=== PATIENT | female | born 2000 | race Caucasian/White ===

== ENCOUNTER 2019-08-12 13:23 | Emergency (ER) | payer MEDICAID, SELFPAY ==
[2019-08-12 13:32] VITALS: BP 118/62; PULSE 107; RESP 18; TEMP 36.4; O2SAT 99; BMI 23.8
--- NOTE | 2019-08-12 13:59 | US_ITS ---
WS: [id number] EARLY OBSTETRICAL ULTRASOUND (<14 WEEKS). HISTORY: thinks about 9 wks preg; bleeding/cramping COMPARISON: None available. Single intrauterine gestational sac is identified. Cardiac activity at 164 BPM. [place]-rump length rené sures 3.4 cm which corresponds to a gestation of 10w2d. Normal-appearing yolk sac and amnion demonstr ated. Small subchorionic hemorrhage.Subchorionic hemorrhage along the posterior gestational sac measu res 2.1 x 0.8 x 2.2 cm. No free fluid. Normal size ovaries with no mass. US/US OB <= 14 weeks fetus [id number] IMPRESSION: 1. Single intrauterine gestation of 10 weeks 2 days with an EDC of 03/07/2020. 2. Small subchorionic hemorrhage.
--- NOTE | 2019-08-12 14:00 | ED_ITS ---
HPI - General: Chief complaint: OB/Uterine Contractions Stated complaint: preg/cramping and bleeding Time Seen by Provider: 08/12/19 13:27 Source: patient Mode of arrival: ambulatory Limitations: no limitations History of Present Illness: HPI Narrative: Patient is a 19-year-old female [id number] here at approximately 9 weeks for complaints of vaginal bleeding and cramping that began this morning. Patient states she has saturated 2 pads total but currently describes the bleeding as light spotting. Patient states she did have her confirmed at [place] recently. She denies vaginal discharge or odor. Denies concerns for STDs. She denies abdominal pain, nausea, vomiting. No urinary symptoms. Date of Last Menstrual Period: 06/02/19 Associated symptoms: Deny abdominal pain, dysuria, headache(s), malaise, nausea, vaginal bleeding, vaginal discharge or vomiting Review of Systems Const: Denies: fever, chills, body aches, fatigue or malaise Card: Denies: chest pain Resp: Denies: shortness of breath GI: Denies: abdominal pain, nausea, vomiting or diarrhea : Reports: vaginal bleeding and pelvic pain (cramping); Denies: flank pain, difficulty urinating, painful urination, urinary frequency, urinary urgency, urinary hesitancy, blood in urine, genital lesion, genital itching, vaginal odor or vaginal discharge Musc: Denies: neck pain or back pain Skin/Breast: Denies: rash Neuro: Denies: headache, numbness in extremities, weakness in extremities or changes in sensation PFS ED PFSH: Social History Smoking and tobacco status: current every day smoker Female Reproductive History: Date of last menstrual period: 06/02/19 Physical Exam Const: COMMON NORMALS: no apparent distress, average body habitus, oriented x3, no limitations, healthy appearing, alert and well nourished Resp: COMMON NORMALS: normal respiratory effort and clear to auscultation bilaterally AUSCULTATION: clear to auscultation bilaterally Cardio: COMMON NORMALS: regular rate and regular rhythm RATE: regular rate RHYTHM: regular rhythm GI: COMMON NORMALS: normal to inspection, nondistended, normoactive bowel sounds, soft to palpation, non-tender, no hepatosplenomegaly and no masses PALPATION: Yes soft and Yes no hepatosplenomegaly : COMMON NORMALS: Yes no CVA tenderness BLADDER/KIDNEY EXAM: Yes no CVA tenderness SPECULUM EXAM - VAGINA: No vaginal bleeding, No tissue present in vagina and Yes vaginal discharge Vaginal discharge present: yellow SPECULUM EXAM - CERVIX: Yes cervical os closed, No tissue present in the cervical os, No cervical bleeding, No cervical tenderness and Yes other (no cervicitis ) BIMANUAL EXAM - VAGINA & UTERUS: No cervical tenderness OB/EXTERNAL & SPECULUM: no tissue noted in vagina and vaginal bleeding Back/Pelvis: COMMON NORMALS: no CVA tenderness Neuro: COMMON NORMALS: oriented x3 SENSORIUM/ORIENTATION: Yes alert Skin: COMMON NORMALS: no rashes or lesions noted GENERAL SKIN EXAM: no rashes or lesions noted Course Vital Signs: Vital signs: Vital Signs Temperature 97.6 F 08/12/19 13:32 Pulse Rate 99 08/12/19 14:48 Respiratory Rate 18 08/12/19 14:48 Blood Pressure 103/65 08/12/19 14:48 Pulse Oximetry 98 08/12/19 14:48 MDM - OB/Uterine Contractions Lab Data: Labs: Lab Results 08/12/19 08/12/19 08/12/19 Range/Units 14:46 14:46 14:46 WBC 9.8 (4.5-13.0) 10^3/ uL RBC 4.01 L (4.1-5.3) 10^6/u L Hgb 12.0 (11.5-15.3) g/dL Hct 35.1 L (37.0-47.0) % MCV 87.5 (81-99) fL MCH 29.9 (28.0-34.0) pg MCHC 34.2 (30.0-36.0) g/dL RDW 12.7 (12.1-15.1) % Plt Count 186 (130-400) 10^3/c mm MPV 11.0 H (7.4-10.4) fL Neut % (Auto) 70.6 % Lymph % (Auto) 21.8 % [place] % (Auto) 6.7 % Eos % (Auto) 0.5 % Baso % (Auto) 0.2 % Neut # (Auto) 6.9 (1.8-8.0) 10^3/u L Lymph # (Auto) 2.2 (1.5-6.5) 10^3/u L [place] # (Auto) 0.7 (0.2-0.9) 10^3/u L Eos # (Auto) 0.1 (0.0-0.8) 10^3/u L Baso # (Auto) 0.0 (0.0-0.1) 10^3/u L Nucleated RBC % (a uto) 0 % Nucleated RBCs # 0.0 /100WBC Sodium 137 (136-145) mmol/L Potassium 3.8 (3.5-5.1) mmol/L Chloride 101 (98-107) mmol/L Carbon Dioxide 24 (22-29) mmol/L Anion Gap 15.8 (5-19) BUN 6 (6-20) mg/dL Creatinine 0.4 L (0.5-0.9) mg/dL GFR Calculation 203.5 H (90-130) mL/min Glucose 97 (65-115) mg/dL Calculated Osmolal ity 280 L (285-295) mOsm/k g Calcium 9.4 (8.5-10.5) mg/dL Total Bilirubin 0.2 (0.15-1.2) mg/dL AST 12 (0-32) U/L ALT 10 (0-33) U/L Alkaline Phosphata se 86 (35-105) IU/L Total Protein 6.6 (6.6-8.7) g/dL Albumin 4.0 (3.5-5.2) g/dL Globulin 2.6 (1.3-4.6) g/dL Ser , [place] David i-Qnt mIU/mL Blood Type O Positive Rho(D) Type Positive 08/12/19 Range/Units 14:46 WBC (4.5-13.0) 10^3/ uL RBC (4.1-5.3) 10^6/u L Hgb (11.5-15.3) g/dL Hct (37.0-47.0) % MCV (81-99) fL MCH (28.0-34.0) pg MCHC (30.0-36.0) g/dL RDW (12.1-15.1) % Plt Count (130-400) 10^3/c mm MPV (7.4-10.4) fL Neut % (Auto) % Lymph % (Auto) % [place] % (Auto) % Eos % (Auto) % Baso % (Auto) % Neut # (Auto) (1.8-8.0) 10^3/u L Lymph # (Auto) (1.5-6.5) 10^3/u L [place] # (Auto) (0.2-0.9) 10^3/u L Eos # (Auto) (0.0-0.8) 10^3/u L Baso # (Auto) (0.0-0.1) 10^3/u L Nucleated RBC % (a uto) % Nucleated RBCs # /100WBC Sodium (136-145) mmol/L Potassium (3.5-5.1) mmol/L Chloride (98-107) mmol/L Carbon Dioxide (22-29) mmol/L Anion Gap (5-19) BUN (6-20) mg/dL Creatinine (0.5-0.9) mg/dL GFR Calculation (90-130) mL/min Glucose (65-115) mg/dL Calculated Osmolal ity (285-295) mOsm/k g Calcium (8.5-10.5) mg/dL Total Bilirubin (0.15-1.2) mg/dL AST (0-32) U/L ALT (0-33) U/L Alkaline Phosphata se (35-105) IU/L Total Protein (6.6-8.7) g/dL Albumin (3.5-5.2) g/dL Globulin (1.3-4.6) g/dL Ser , [place]Qnt 72138.00 mIU/mL Blood Type Rho(D) Type Imaging Data^: US OB: Radiologist's impression: [address] [address] Ultrasound Report Signed Patient: Marcelino Ji Unit #: [id number] : 2000 Age/Sex: 19 / F ADM Date: 08/12/19 Loc: ER Room/Bed: Attending Dr: Ordering Provider/Ordering MD: Berna Hearn Date of Service: 08/12/19 Procedure(s): US OB <= 14 weeks fetus [id number] Accession Number(s): [id number] Report Number: [id number] WS: [id number] EARLY OBSTETRICAL ULTRASOUND (<14 WEEKS). HISTORY: thinks about 9 wks preg; bleeding/cramping COMPARISON: None available. Single intrauterine gestational sac is identified. Cardiac activity at 164 BPM. [place]-rump length measures 3.4 cm which corresponds to a gestation of 10w2d. Normal-appearing yolk sac and amnion demonstrated. Small subchorionic hemorrhage.Subchorionic hemorrhage along the posterior gestational sac measures 2.1 x 0.8 x 2.2 cm. No free fluid. Normal size ovaries with no mass. US/US OB <= 14 weeks fetus [id number] IMPRESSION: 1. Single intrauterine gestation of 10 weeks 2 days with an EDC of 03/07/2020. 2. Small subchorionic hemorrhage. Dictated By: Taylor River DO Signed By: Taylor River DO Signed Date/Time: 08/12/191451 DD/ 49 Discharge Plan Discharge Patient Disposition: Home, Self-Care Clinical Impression: , threatened Condition: Stable Prescriptions: No Action No Known Home Medications RF: 0 Discharge Orders: Discharge Order (Routine); Ordered 08/12/19 Ordered By: Berna Hearn Referrals: Michael Marino DO [Family Provider] - Mandeep Baltazar MD [Primary Care Provider] - Patient Instructions: Threatened , Threatened Miscarriage (ED) Activity Restrictions/Additional Instructions: Avoid sexual intercourse until seen/cleared by your OB. Contact Dr. Baltazar today/tomorrow to schedule follow up visit. Return to ED for worsening cramping/bleeding. Coding Level of Care Code ED Overnight Babysitter for Chg Fwd Exam Detailed
[2019-08-12 14:48] VITALS: BP 103/65; PULSE 99; RESP 18; O2SAT 98
[2019-08-12 15:06] LABS: Basophils % 0.2 %; Eosinophils # 0.1 10^3/uL (0.0-0.8); Eosinophils % 0.5 %; Hematocrit 35.1 % (37.0-47.0); Lymphocytes # 2.2 10^3/uL (1.5-6.5); Lymphocytes % 21.8 %; Mean Corpuscular HGB Conc 34.2 g/dL (30.0-36.0); Mean Corpuscular Hemoglobin 29.9 pg (28.0-34.0); Mean Corpuscular Volume 87.5 fL (81-99); Monocytes # 0.7 10^3/uL (0.2-0.9); Monocytes % 6.7 %; Neutrophils # 6.9 10^3/uL (1.8-8.0); Neutrophils % 70.6 %; Nucleated Red Blood Cells % 0 %; Platelet Count 186 10^3/cmm (130-400); Red Blood Count 4.01 10^6/uL (4.1-5.3); Red Cell Distribution Width 12.7 % (12.1-15.1); White Blood Count 9.8 10^3/uL (4.5-13.0)
[2019-08-12 15:16] LABS: Alanine Aminotransferase 10 U/L (0-33); Alkaline Phosphatase 86 IU/L (35-105); Anion Gap 15.8 (5-19); Aspartate Amino Transferase 12 U/L (0-32); Blood Urea Nitrogen 6 mg/dL (6-20); Calcium 9.4 mg/dL (8.5-10.5); Carbon Dioxide 24 mmol/L (22-29); Chloride 101 mmol/L (98-107); Globulin 2.6 g/dL (1.3-4.6); Glomerular Filtration Rate 203.5 mL/min (90-130); Glucose 97 mg/dL (65-115); Osmolality Calculated 280 mOsm/kg (285-295); Potassium 3.8 mmol/L (3.5-5.1); Sodium 137 mmol/L (136-145); Total Bilirubin 0.2 mg/dL (0.15-1.2); Total Protein 6.6 g/dL (6.6-8.7)
[2019-08-12 17:05] VITALS: BP 102/61; PULSE 79; RESP 16; O2SAT 98
--- NOTE | 2019-08-15 07:48 | PC.NURSE ---
unable to contact pt by phone, letter sent to pt to notify culture returned with trich and need flagyl 500mg bid for 7days
== END 2019-08-12 17:13 | disposition home or self-care (01) ==
PROVIDERS: Emergency Provider Physician Assistant; Family Provider Family Medicine; PCP Family Medicine
DX: O20.0 Threatened abortion (principal); Z3A.10 10 weeks gestation of pregnancy; O99.331 Smoking (tobacco) complicating pregnancy, first trimester
CPT/HCPCS: 12345; 36415; 76801; 80053; 84702; 85025; 86900; 87210; 87491; 87591; 99283; E0352

== ENCOUNTER 2019-09-27 14:54 | Emergency (ER) | payer MEDICAID, SELFPAY ==
[2019-09-27 15:03] VITALS: BP 112/70; PULSE 91; RESP 18; TEMP 36.8; O2SAT 99; BMI 21.5
--- NOTE | 2019-09-27 15:17 | ED_ITS ---
HPI - Skin/Abscess/Foreign Bdy General: Chief complaint: Skin/Abscess/Foreign Body Stated complaint: LUMP UNDER ARM Time Seen by Provider: 09/27/19 14:59 History of Present Illness: HPI narrative: Patient came to the ER for a lump in her right axilla that she states has been there for approximately 9 months. Patient is also approximately 4 months and has had no care. complaint: lesion Review of Systems General: Reports: 10 or more systems reviewed and unremarkable except in HPI and below PFSH ED PFSH: Social History Smoking and tobacco status: current every day smoker Female Reproductive History: Date of last menstrual period: 06/02/19 Physical Exam Narrative: EXAM NARRATIVE: Palpation of the right axilla reveals a deep slightly enlarged but exquisitely painful lymph node. Course ED course: After evaluation of patient's primary complaint, I tried to speak with her concerning her current and lack of care. Patient became angry and refused to speak any further. Vital Signs: Vital signs: Vital Signs Temperature 98.3 F 09/27/19 15:03 Pulse Rate 91 09/27/19 15:03 Respiratory Rate 18 09/27/19 15:03 Blood Pressure 112/70 09/27/19 15:03 Pulse Oximetry 99 09/27/19 15:03 Discharge Plan Discharge Patient Disposition: Home, Self-Care Clinical Impression: Lymphadenitis Condition: Stable Prescriptions: No Action No Known Home Medications RF: 0 Discharge Orders: Discharge Order (Routine); Ordered 09/27/19 Ordered By: Anthony Calderón Referrals: Michael Marino DO [Family Provider] - Mandeep Baltazar MD [Primary Care Provider] - Coding Level of Care Code ED Home Restoration Service Supervisor for Maria C Farley
[2019-09-27 15:41] VITALS: BP 112/70; PULSE 89; RESP 14; O2SAT 99
== END 2019-09-27 15:42 | disposition home or self-care (01) ==
PROVIDERS: Emergency Provider Family Medicine; Family Provider Family Medicine; PCP Family Medicine
DX: I88.9 Nonspecific lymphadenitis, unspecified (principal); F17.210 Nicotine dependence, cigarettes, uncomplicated
CPT/HCPCS: 12345; 99281

== ENCOUNTER 2020-03-08 10:05 | Inpatient (IN) | payer MEDICAID, SELFPAY ==
[2020-03-08] VITALS (74 sets, daily range): BP systolic 0–127; BP diastolic 0–84; PULSE 81–114; RESP 15–18; TEMP 36.7–36.9; O2SAT 96–100; BMI 24.2
[2020-03-08] MEDS: lactated ringers 1,000 ML 999 ML IV ×2 (10:44→11:50)
[2020-03-08 10:54] LABS: Basophils % 0.2 %; Eosinophils # 0.1 10^3/uL (0.0-0.8); Eosinophils % 0.8 %; Hemoglobin 9.8 g/dL (11.5-15.3); Lymphocytes # 3.4 10^3/uL (1.5-6.5); Lymphocytes % 20.4 %; Mean Corpuscular HGB Conc 32.7 g/dL (30.0-36.0); Mean Corpuscular Hemoglobin 29.3 pg (28.0-34.0); Mean Corpuscular Volume 89.6 fL (81-99); Monocytes # 1.4 10^3/uL (0.2-0.9); Monocytes % 8.5 %; Neutrophils # 11.62 10^3/uL (1.8-8.0); Neutrophils % 69.4 %; Nucleated Red Blood Cells % 0 %; Platelet Count 242 10^3/cmm (130-400); Red Blood Count 3.35 10^6/uL (4.1-5.3); Red Cell Distribution Width 12.9 % (12.1-15.1); White Blood Count 16.8 10^3/uL (4.5-13.0)
[2020-03-08 11:21] LABS: Amphetamines Screen Urine Negative (Negative); Barbiturates Screen Urine Negative (Negative); Benzodiazepines Screen Urine Negative (Negative); Cocaine Screen Urine Negative (Negative); Opiate Screen Urine Negative (Negative); PCP Screen Urine Negative (Negative); THC Screen Urine Negative (Negative)
--- NOTE | 2020-03-08 11:45 | ANES.PREANE2 ---
Pre-Anesthetic Assessment Pre-Anesthetic Assessment: Height/Weight: Height 1.57 m Weight 60.006 kg Pulse BP 104 H 123/82 03/08/20 11:19 03/08/20 11:19 Preop Diagnosis: labor pain Proposed Procedure: epidural Was Beta Nelly taken within 24 hours: N/A Social: Social History: Tobacco Packs per day: 0.5 Exam: Pre-Anes Outpt Exam: alert, oriented x 3, clear to auscultation bilaterally and regular rate & rhythm Airway: Submandibular: WNL Cervical ROM: WNL MP: 2 Dentition: Full Pulmonary: Pulmonary: None reported CV/HEM: CV/HEM: None reported : : None reported Hepatic: Hepatic: None reported GI: GI: None reported Metabolic: Metabolic: None reported Musc/skel: Musc/skel: None reported Neuropsych: Neuropsych: Anxiety and Depression Anesthetic Plan: ASA status: 2 Anesthesia: Regional (specify below) Meds/Allergies Current Medications: Current Medications Generic Name Dose Route Start Last Admin Trade Name Freq PRN Reason Stop Dose Admin Ropivacaine 200 mg in 100 mls @ 13 mls/hr 03/08/20 10:45 03/08/20 11:44 Naropin Premix EPIDURAL 13 mls/hr .[id number] PHILLIP Administration Lactated Ringer's 1,000 mls @ 999 m ls/hr 03/08/20 10:39 03/08/20 10:44 Lactated Ringers IV 999 mls/hr .Q1H1M PRN Administration See label comment s PFSH Anesthesia PFSH: Social History Smoking and tobacco status: current every day smoker Female Reproductive History: Date of last menstrual period: 06/02/19 : 4 Data Anesthesia CBC & Chem 7: 03/08/20 10:25 Other Labs: Laboratory Results - last 48 hr 03/08/20 03/08/20 10:20 10:25 WBC 16.8 H RBC 3.35 L Hgb 9.8 L Hct 30.0 L MCV 89.6 MCH 29.3 MCHC 32.7 RDW 12.9 Plt Count 242 MPV 12.0 H Neut % (Auto) 69.4 Lymph % (Auto) 20.4 [place] % (Auto) 8.5 Eos % (Auto) 0.8 Baso % (Auto) 0.2 Neut # (Auto) 11.62 H Lymph # (Auto) 3.4 [place] # (Auto) 1.4 H Eos # (Auto) 0.1 Baso # (Auto) 0.0 Nucleated RBC % (auto) 0 Nucleated RBCs # 0.0 Urine Opiates Screen Negative Ur Barbiturates Screen Negative Ur Phencyclidine Scrn Negative Ur Amphetamines Screen Negative U Benzodiazepines Scrn Negative Urine Cocaine Screen Negative U Marijuana (THC) Screen Negative Cardiac Studies: No Data to Display
--- NOTE | 2020-03-08 12:09 | ANES.PROC ---
Anesthesia Procedures Procedure/Date: 03/08/20 epidural Procedure Narrative: epidural complete, bolus given, epidural pump initiated with EXTRACTIONS TECHNICIAN education given, vitals taken during procedure using OBIX system and satisfactory throughout, patient admits to decrease pain, report of procedure to OB RN Epidural: Time Out Performed: Yes Consents Signed: Procedure Consent Consent: requested by attending/covering physician, from patient, risks and benefits reviewed and patient agrees to proceed Lumbar Level: L3-L4 Epidural position: sitting Epidural procedure: sterile prep of area, 1% lidocaine to numb the area (3 mL), 18 g needle, negative for paresthesia passed, neg for paresthesia, test dose given, 1.5% xylocaine 1:200k epi (5 mL), 0.2% Ropivacaine bolus ml (5 mL), placed PCEA, no systemic response, sterile dressing applied, L.U.D. no apparent complications and 0.2% Ropiavacaine @ mls/hr (13 mL/hr)
[2020-03-08] MEDS: dextrose 5%-lactated ringers 1,000 ML 125 ML IV (12:46)
--- NOTE | 2020-03-08 18:02 | PM.DELIVERY ---
Delivery Note: Date of delivery: March 08, 2020 this 19-year-old 4 now para 2 female with an EDC of 08/06/2019 had spontaneous onset of labor early this morning. She arrived [facility] labor and delivery time late morning and was found to be approximately 5 cm dilated. She labored through the day and dilated to complete cervical dilatation. Artificial rupture membranes was accomplished at approximately 9 cm dilatation with findings of moderate thick meconium stained fluid. However heart tones were very reassuring. Patient delivered by spontaneous vaginal delivery at 1732. Upon delivery the mouth and nose were suctioned well with a bulb syringe and the shoulders were delivered initially the left shoulder anteriorly followed by the posterior right shoulder. The was then suctioned again after delivery prior to laying the infant on mother's abdomen. had good tone at delivery and cried well at . Infant was suctioned more and brought to the warmer where approximately 4 cm of thin meconium stained liquid was deleed. The placenta delivered spontaneously at 1736. There was no episiotomy but a small first-degree right vaginal laceration which was repaired using Vicryl suture. There is also a approximately 2 cm long left vaginal wall laceration from the periurethral area inferiorly. This was also repaired with Vicryl sutures without problems. A sweep of the vaginal vault demonstrated just a few clots and no active bleeding. It was not mentioned above that the infant's father cut the umbilical cord and the umbilical cord had 3 blood vessels. Infant Apgars were 8 and 9 at 1 and 5 minutes respectively and the weighed 7 pounds 11 ounces. Estimated blood loss approximately 115 mL. There were no complications. Pre-Delivery Course: The patient was followed through her initially by this physician at around 17 weeks. She then left my practice and went elsewhere and return to my practice at 37 weeks gestation and was followed for the remainder of her . Maternal blood type was O+ with antibody screen negative. Hepatitis B, hepatitis C, RPR and HIV were negative. Rubella was immune and group B strep was negative. She was also Covid negative. Except for lack of or decreased care there is no other complications through her course. Delivery: Spontaneous vaginal delivery. Post-Delivery Status: Patient is doing well and will be followed for routine postdelivery care. A&P Assessment and plan (1) Normal spontaneous vaginal delivery: Patient is doing well at this time and will be followed for routine postdelivery care. Status: Acute Coding Level of Care Code Acute Time Clock Mechanic for Chg Fwd Diagnoses Normal spontaneous vaginal delivery O80
[2020-03-08] MEDS: oxytocin 30 UNIT/500 ML BAG 600 UNIT IV (19:18)
--- NOTE | 2020-03-08 20:18 | PC.NURSE ---
PT AMBULATED TO ROOM AT 1930. EAR FLAP BINDER WALKED ALONGSIDE PT. PT TOLERATED AMBULATION WELL.
[2020-03-08] MEDS: ibuprofen 800 mg tablet PO (20:30)
[2020-03-08] MEDS: benzocaine-menthol 78 gm Canister 1 SPRAY TOPICAL (22:34)
[2020-03-08] MEDS: lanolin oint 7 gm 1 APPLIC TOPICAL (22:34)
[2020-03-09] VITALS (7 sets, daily range): BP systolic 95–116; BP diastolic 57–76; PULSE 73–115; RESP 16–18; TEMP 36.6–37; O2SAT 97–99
[2020-03-09] MEDS: HYDROcodone-acetaminophen 5-325 mg Tablet PO ×2 (03:34→13:57)
--- NOTE | 2020-03-09 04:10 | PC.NURSE ---
PT RATING LOWER ABD PAIN AT 8/10. CAPACITOR REPAIRER OFFERED PT PRN PAIN MEDICATION, PT REQUESTED ONE HYDROCODONE. AT PAIN REASSESSMENT, PT STATED PAIN LEVEL WAS THE SAME BUT REFUSED ANY OTHER INTERVENTIONS FOR PAIN MANAGMENT, STATED SHE WANTED TO RIDE IT OUT . AT THIS TIME, CAPACITOR REPAIRER OFFERED ICE PACK AND SITZ BATH FOR NOTED SWOLLEN PERINEUM, PT REFUSED.
[2020-03-09 06:27] LABS: Hemoglobin 8.7 g/dL (11.5-15.3); Mean Corpuscular HGB Conc 32.2 g/dL (30.0-36.0); Mean Corpuscular Hemoglobin 29.5 pg (28.0-34.0); Mean Corpuscular Volume 91.5 fL (81-99); Mean Platelet Volume 12.1 fL (7.4-10.4); Platelet Count 236 10^3/cmm (130-400); Red Blood Count 2.95 10^6/uL (4.1-5.3); Red Cell Distribution Width 12.8 % (12.1-15.1); White Blood Count 21.1 10^3/uL (4.5-13.0)
--- NOTE | 2020-03-09 07:27 | PM.OBGYDC ---
Discharge Providers ASSOCIATE PROGRAMMER ANALYST Date of Admission: 03/08/20 10:26 Date of Discharge: 03/09/20 Attending Provider at Admission: Mandeep Baltazar MD Attending Provider at Discharge: Mandeep Baltazar MD Primary Care Provider: Mandeep Baltazar MD Diagnoses at Discharge Discharge Diagnosis (1) Normal spontaneous vaginal delivery: Status: Acute Hospital Course Hospital Course Patient has done well since delivery. She is ambulating well and tolerating regular diet. She has mild lochia with no problems. She is felt to be stable for discharge this evening. Information Peripartum Data: Delivery Method: Vaginal Physical Exam Const: COMMON NORMALS: no acute distress GENERAL APPEARANCE: cooperative Resp: COMMON NORMALS: normal respiratory effort and No use of accessory muscles GI: COMMON NORMALS: Normal to inspection, nondistended, normoactive bowel sounds present and Soft to palpation (Fundus is firm and well below the umbilicus.) PALPATION: Yes Soft to palpation (Fundus is firm and well below the umbilicus.) Extremity: COMMON NORMALS: no pedal edema Urinary Catheter Management^: Vora: Cath Placed During This Visit: yes, but has since been removed by the nurse Reason for Continuing Indwelling Catheter: Decision to DC Catheter Urinary Catheter Date of Insertion: 03/08/20 Urinary Catheter Time of Insertion: 12:05 Date Urinary Catheter Removed: 03/08/20 Time Urinary Catheter Discontinued: 17:12 Discharge Data Data Completed and Pending: Labs from last 24 hours 03/09/20 03/08/20 03/08/20 06:00 10:25 10:20 WBC 21.1 H 16.8 H RBC 2.95 L 3.35 L Hgb 8.7 L 9.8 L Hct 27.0 L 30.0 L MCV 91.5 89.6 MCH 29.5 29.3 MCHC 32.2 32.7 RDW 12.8 12.9 Plt Count 236 242 MPV 12.1 H 12.0 H Neut % (Auto) 69.4 Lymph % (Auto) 20.4 [place] % (Auto) 8.5 Eos % (Auto) 0.8 Baso % (Auto) 0.2 Neut # (Auto) 11.62 H Lymph # (Auto) 3.4 [place] # (Auto) 1.4 H Eos # (Auto) 0.1 Baso # (Auto) 0.0 Nucleated RBC % (a uto) 0 Nucleated RBCs # 0.0 Urine Opiates Scre en Negative Ur Barbiturates Sc reen Negative Ur Phencyclidine S crn Negative Ur Amphetamines Sc reen Negative U Benzodiazepines Scrn Negative Urine Cocaine Scre en Negative U Marijuana (THC) Screen Negative Vitals: Last Vital Signs Temp 98.3 F 03/09/20 03:25 Pulse 94 03/09/20 03:25 Resp 18 03/09/20 03:25 BP 106/63 03/09/20 03:25 Pulse Ox 97 03/09/20 03:25 Discharge Plan Discharge Patient Disposition: Home Condition: Stable Prescriptions: No Action No Known Home Medications RF: 0 Discharge Orders: Discharge Order (Routine); Ordered 03/09/20 Ordered By: Mandeep Baltazar Referrals: Mandeep Baltazar MD [Primary Care Provider] - 6 Weeks Discharge Diet: Usual diet Discharge Activity: Resume usual activity Activity Restrictions/Additional Instructions: May be discharged this evening after infant's metabolic screen. Discharge Attestations ASSOCIATE PROGRAMMER ANALYST Time Spent in Discharge Care*: less than 30 min Specific Discharge Activities: Specific discharge activities: educating patient, documenting/other paperwork and evaluating patient/reviewing data Coding Level of Care Code Acute Sfdc Solution Architect for Chg Fwd Diagnoses Normal spontaneous vaginal delivery O80
--- NOTE | 2020-03-09 07:34 | PC.NURSE ---
Mom reports baby is nursing well. She nursed her first baby for two weeks stating her breasts got hard and she quit. Baby is sleeping at present last fed about 5 AM. Mom will eat breakfast and rouse baby to eat.
[2020-03-09] MEDS: prenatal vitamin Capsule 1 CAP PO (09:11)
[2020-03-09] MEDS: docusate sodium 100 mg Capsule PO ×2 (09:11→18:07)
[2020-03-09] MEDS: ibuprofen 800 mg tablet PO ×2 (09:11→14:28)
[2020-03-09] MEDS: benzocaine 20% 7 gm 1 APPLIC MUCOUS MEM (15:35)
--- NOTE | 2020-03-09 16:52 | PC.RESP ---
Smoking Cessation information sent to patient.
== END 2020-03-09 19:45 | disposition home or self-care (01) | DRG 807 ==
PROVIDERS: Admitting Provider Family Medicine; Family Provider Family Medicine; PCP Family Medicine; Visit Provider Family Medicine
DX: O77.0 Labor and delivery complicated by meconium in amniotic fluid (principal); Z37.0 Single live birth; Z3A.40 40 weeks gestation of pregnancy; O99.334 Smoking (tobacco) complicating childbirth; F17.210 Nicotine dependence, cigarettes, uncomplicated; O99.344 Other mental disorders complicating childbirth; F41.8 Other specified anxiety disorders; O70.0 First degree perineal laceration during delivery; Z20.828 Contact with and (suspected) exposure to other viral communicable diseases
CPT/HCPCS: 12345; 36415; 51702; 59025; 59409; 80306; 85025; 85027; 90471; 90686; 98960; 99211; G0378; G0379; J2795

== ENCOUNTER 2021-10-08 13:18 | Emergency (ER) | payer MEDICAID, SELFPAY ==
--- NOTE | 2021-10-08 13:33 | XRR_ITS ---
PROCEDURE INFORMATION: Exam: XR Left Shoulder Exam date and time: 10/08/2021 3:05 PM Age: 21 years old Clinical indication: Injury or trauma; Fall; Blunt trauma (contusions or hematomas); Shoulder; Left; Additional info: Shoulder injury TECHNIQUE: Imaging protocol: XR Left shoulder. Views: 2 or more views. COMPARISON: CR Chest 1 view [id number] 07/25/2016 1:12 AM FINDINGS: Bones/joints: Osseous structures are intact. Negative for fracture. Joint spaces are preserved. Soft tissues: Normal. XR/XR shoulder LT min 2V* [id number] IMPRESSION: No acute findings.
[2021-10-08 14:13] VITALS: BP 116/82; PULSE 78; RESP 16; TEMP 36.9; O2SAT 98; BMI 21.0
--- NOTE | 2021-10-08 14:33 | W.ED.EXTPRO ---
HPI - Extremity Problem General: Chief complaint: Extremity Problem,Nontraumatic Stated complaint: left shoulder injury Time Seen by Provider: 10/08/21 14:25 Source: patient Mode of arrival: ambulatory Limitations: no limitations History of Present Illness: 21-year-old female presents to the ER today for left shoulder pain x2 weeks. Patient denies any known injury. She reports she just noticed that her shoulder started hurting. She reports she has pain at rest but the worst pain is when she lifts her arm. Patient denies any swelling. Patient reports she has 2 children who she has trouble lifting due to the pain. Patient has not take anything for the pain at this time. Review of Systems General: Reports: 10 or more systems reviewed and unremarkable except in HPI and below PFSH ED PFSH: Social History Smoking and tobacco status: current every day smoker Female Reproductive History: Date of last menstrual period: 06/02/19 Physical Exam Const: COMMON NORMALS: no acute distress, average body habitus, patient oriented x3, no limitations, healthy appearing and alert Neck/C-Spine: COMMON NORMALS: no lymphadenopathy Resp: COMMON NORMALS: normal respiratory effort EFFORT & INSPECTION: Yes able to speak in complete sentences Cardio: COMMON NORMALS: regular rate and regular rhythm RATE: regular rate RHYTHM: regular rhythm Extremity: NARRATIVE EXTREMITY EXAM: Left shoulder is nontender. No swelling or deformities noted. Patient has pain with active abduction greater than 45 degrees. Passive abduction is nontender. Empty can test is positive with some weakness noted. Neuro: COMMON NORMALS: patient oriented x3 SENSORIUM/ORIENTATION: Yes alert Psych: COMMON NORMALS: mental status grossly normal, Normal thought process present and cooperative THOUGHT PROCESS: Normal thought process present Skin: COMMON NORMALS: no rashes or lesions noted GENERAL SKIN EXAM: no rashes or lesions noted Course ED course: 21-year-old female presents to the ER today for left shoulder pain x2 weeks. Patient has no known injury. She reports pain with lifting the shoulder. She has not taking thing for the pain at this time. We will get an x-ray. On exam patient appears to likely have a rotator cuff injury, likely a strain or tendinitis. Vital Signs: Vital signs: Vital Signs Temperature 98.5 F 10/08/21 14:13 Pulse Rate 78 10/08/21 14:13 Respiratory Rate 16 10/08/21 14:13 Blood Pressure 116/82 10/08/21 14:13 Pulse Oximetry 98 10/08/21 14:13 MDM - Extremity (Nontraumatic) Medical Decision Making 21-year-old female presents to the ER today for left shoulder pain x2 weeks. Patient has no known injury. She reports pain with lifting the shoulder. She has not taking thing for the pain at this time. We will get an x-ray. On exam patient appears to likely have a rotator cuff injury, likely a strain or tendinitis. X-ray is unremarkable. Discussed findings with patient. We will start patient on Medrol Dosepak and anti-inflammatory as likely this is a tendinitis versus a strain. Discussed rest. Discussed pendulum exercises to avoid frozen shoulder. If no improvement in 10 to 14 days patient to follow-up with her PCP. Return to the ER with new or worsening symptoms. Patient verbalized understanding and is in agreement with the treatment plan. Critical Care Time Critical Care Time: Critical Care Time: No Discharge Plan Discharge Patient Disposition: Home Clinical Impression: Acute pain of left shoulder Condition: Stable Prescriptions: New Medrol ([place]) 4 mg tablets,dose pack See Rx Instructions .ROUTE .COMPLEX Qty: 21 0RF Rx Instructions: orally per package directions meloxicam 7.5 mg tablet 7.5 mg PO DAILY Qty: 14 0RF Discharge Orders: Discharge ED (Routine); Ordered 10/08/21 Ordered By: Kiki Nava Referrals: Mandeep Baltazar MD [Primary Care Provider] - Discharge Diet: Usual diet Discharge Activity: Limit activity as instructed Patient Instructions: Opioid Safety Activity Restrictions/Additional Instructions: Take Medrol Dosepak and meloxicam as prescribed. Recommend pendulum exercises to keep shoulder from becoming frozen. Rest recommended, avoid lifting. Follow-up with PCP in 14 to 21 days if no improvement. Return to the ER with new or worsening symptoms. 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
== END 2021-10-08 15:48 | disposition home or self-care (01) ==
PROVIDERS: Emergency Provider Physician Assistant; PCP Family Medicine
DX: M25.512 Pain in left shoulder (principal)
CPT/HCPCS: 73030; 99283

== ENCOUNTER 2023-05-31 06:19 | Inpatient (IN) | payer MEDICAID, SELFPAY ==
[2023-05-31] VITALS (57 sets, daily range): BP systolic 88–157; BP diastolic 53–88; PULSE 52–145; RESP 16–18; TEMP 36.6–37.3; O2SAT 77–100; BMI 24.7
[2023-05-31] MEDS: lactated ringers 1,000 ML 999 ML IV (06:41)
[2023-05-31 06:52] LABS: Basophils # 0.1 10^3/uL (0.0-0.1); Basophils % 0.4 %; Eosinophils # 0.4 10^3/uL (0.0-0.8); Eosinophils % 1.5 %; Hematocrit 30.2 % (36-47); Lymphocytes % 16.8 %; Mean Corpuscular HGB Conc 33.8 g/dL (30-55); Mean Corpuscular Hemoglobin 31.5 pg (27-33); Mean Corpuscular Volume 93.2 fl (85-98); Mean Platelet Volume 11.8 fL (7.4-10.4); Monocytes % 8.5 %; Neutrophils # 16.76 10^3/uL (1.8-7.7); Neutrophils % 70.6 %; Nucleated Red Blood Cells % 0 %; Platelet Count 202 10^3/cmm (157-399); Red Blood Count 3.24 10^6/uL (3.85-5.65); Red Cell Distribution Width 13.7 % (12.1-15.1); White Blood Count 23.72 10^3/uL (3.29-11.43)
[2023-05-31] MEDS: fentaNYL 50 mcg/mL INJ 2mL IVP (07:06)
[2023-05-31] MEDS: ROPivacaine syringe 100 MG/50 ML SYRINGE 10 MG EPIDURAL ×2 (07:52→12:05)
--- NOTE | 2023-05-31 08:01 | P.ANESASSM_ITS ---
Pre-Anesthetic Assessment Height/Weight: Height 1.57 m Weight 61.235 kg Temp Pulse Resp BP Pulse Ox O2 Del Method 98.8 F 106 H 18 110/65 98 Room Air 05/31/23 06:46 05/31/23 07:58 05/31/23 07:06 05/31/23 07:53 05/31/23 07:58 05/31/23 06:57 Epidural Familial anesthetic complications: None Was Beta Nelly taken within 24 hours: N/A Was Clonidine taken within 24 hours: N/A Last intake: > 8 hrs Social Tobacco and No alcohol Exam alert, oriented x 3, clear to auscultation bilaterally and regular rate & rhythm Airway Mallampati: Class I Dentition: full Anesthetic Plan ASA status: 2 Anesthesia: Regional (specify below) Risk of > 500 ml blood loss (7ml/kg in children): Yes, adequate IV access and fluids planned Other Pertinent Information discussed with patient that her high white count increases her risk of infection; states she would like to proceed Medications/Allergies Home Medications Medication Instructions Recorded Confirmed Last Taken Type meloxicam 7.5 mg tablet 7.5 mg PO DAILY #14 tabs 10/08/21 Unknown Rx methylprednisolone 4 mg tablets in See Rx Instructions PO .COMPLEX 10/08/21 Unknown Rx a dose pack (Medrol ([place]ren)) #21 ea Allergies Allergy/AdvReac Type Severity Reaction Status Date / Time No Known Allergies Allergy Verified 09/27/19 15:03 Current Medications Generic Name Dose Route Start Last Admin Trade Name Freq PRN Reason Stop Dose Admin Fentanyl 25 - 100 mcg 05/31/23 06:22 05/31/23 07:06 Fentanyl 50 Mcg/Ml Inj 2ml IVP 25 mcg Q1H PRN Administration SEVERE PAIN Lactated Ringer's 1,000 mls @ 999 mls/hr 05/31/23 06:24 05/31/23 06:41 Lactated Ringers IV 999 mls/hr .Q1H1M PRN Administration See label comments PFSH Anesthesia Social History Smoking and tobacco/nicotine status: current every day tobacco/nicotine user Female Reproductive History : 4 Data Anesthesia 05/31/23 06:38 Short CBC 05/31/23 Range/Units 06:38 WBC 23.72 H (3.29-11.43) 10^3/uL Hgb 10.20 L (11.27-16.99) g/dL Hct 30.2 L (36-47) % MCV 93.2 (85-98) fl Plt Count 202 (157-399) 10^3/cmm Neut % (Auto) 70.6 % Neut # (Auto) 16.76 H (1.8-7.7) 10^3/uL Cardiac Studies: 2 No Data to Display
--- NOTE | 2023-05-31 08:02 | ANES.PROC ---
Anesthesia Procedures Procedure/Date: 05/31/23 Epidural: Time Out Performed: Yes Consents Signed: Procedure Consent Consent: requested by attending/covering physician, from patient, from other, risks and benefits reviewed and patient agrees to proceed Lumbar Level: L3-L4 Epidural position: sitting Epidural procedure: sterile prep of area, 1% lidocaine to numb the area, 18 g needle, negative for paresthesia passed, neg for paresthesia, test dose given, 1.5% xylocaine 1:200k epi (5), 0.2% Ropivacaine bolus ml (5), placed PCEA, no systemic response, sterile dressing applied, L.U.D. no apparent complications and 0.2% Ropiavacaine @ mls/hr (10) Additional Comments: ALEC at 4 cm, threaded to 10.5 cm
[2023-05-31] MEDS: lactated ringers 1,000 ML 125 ML IV (08:29)
[2023-05-31] MEDS: oxytocin 30 UNIT/500 ML BAG 600 UNIT IV (12:53)
--- NOTE | 2023-05-31 13:10 | PM.OPHPUD ---
Labor & Delivery H&P Update Date of Procedure: May 31, 2023 Date H&P Performed: 05/30/23 Admission Diagnosis: Active labor Planned procedure: expectant management of labor and delivery
--- NOTE | 2023-05-31 13:11 | PM.DELIVERY ---
Delivery Note: Date of delivery: May 31, 2023 Estimated blood loss (mL): 150 Delivery: This is a 23-year-old at 39 weeks 6 days gestation who presented to labor and delivery in active labor. She received an epidural for pain management. When she was completely dilated she underwent artificial rupture of membranes with clear fluid. Rupture of membranes was less than 1 hour prior to delivery. She only had to push through 3 contractions to have a normal spontaneous vaginal delivery of a viable female infant weight 3620 g, Apgars 8 and 9 over an intact perineum. The infant was suctioned at delivery and placed on the mother's chest. The cord was clamped and cut. The placenta was delivered grossly intact and normal to inspection. There was a first-degree vaginal laceration that was briskly bleeding. This was sutured with 1 stitch of 3-0 chromic. Coding Level of Care Code Acute Code for Chg Fwd
[2023-05-31] MEDS: benzocaine-menthol 78 gm Canister 1 SPRAY TOPICAL (16:09)
[2023-05-31] MEDS: ibuprofen 800 mg tablet PO ×2 (16:09→20:05)
[2023-05-31] MEDS: lanolin oint 7 gm 1 APPLIC TOPICAL (16:10)
[2023-05-31] MEDS: docusate sodium 100 mg Capsule PO (18:21)
[2023-06-01 02:31] VITALS: BP 101/54; PULSE 94; RESP 16; TEMP 36.7
[2023-06-01 02:48] LABS: Hematocrit 27.3 % (36-47); Mean Corpuscular HGB Conc 34.1 g/dL (30-55); Mean Corpuscular Hemoglobin 31.8 pg (27-33); Mean Corpuscular Volume 93.5 fl (85-98); Mean Platelet Volume 12.6 fL (7.4-10.4); Platelet Count 212 10^3/cmm (157-399); Red Blood Count 2.92 10^6/uL (3.85-5.65); Red Cell Distribution Width 13.8 % (12.1-15.1); White Blood Count 25.34 10^3/uL (3.29-11.43)
--- NOTE | 2023-06-01 08:00 | ANE.PACU2 ---
Inpatient post-anesthesia follow up: Airway intact: Yes Vital signs: Temperature 98.4 F Pulse Rate 97 Respiratory Rate 16 Blood Pressure 101/66 Pulse Oximetry 98 Oxygen Delivery Me thod Room Air Oxygen Flow Rate Fraction of Inspir ed Oxygen Hydration adequate: Yes Nausea and vomiting: No Pain level: 1 Mental status: Baseline Epidural Start/End: Epidural Start Date: 05/31/23 Epidural Start Time: 07:37 Epidural End Date: 05/31/23 Epidural End Time: 13:11
[2023-06-01] MEDS: ibuprofen 800 mg tablet PO (09:09)
[2023-06-01] MEDS: docusate sodium 100 mg Capsule PO (09:09)
[2023-06-01] MEDS: prenatal vitamin Capsule 1 CAP PO (09:09)
[2023-06-01 09:16] VITALS: BP 92/58; PULSE 97; RESP 14; TEMP 36.7; O2SAT 99
--- NOTE | 2023-06-01 12:25 | PM.DCS ---
Discharge Providers Date of Admission: 05/31/23 06:19 Date of Discharge: June 01, 2023 Attending Provider at Admission: Marcia Irizarry MD Attending Provider at Discharge: Mracia Irizarry MD Primary Care Provider: Mandeep Baltazar MD Reason for Visit Reason for Visit: contractions Hospital Course Hospital Course This is a 23-year-old G3 now P3 who had a normal spontaneous vaginal delivery of a viable female . After delivery mother and were doing well. Mother had very minimal vaginal bleeding and was comfortable with discharge home. Physical Exam Narrative: Alert and oriented resting in bed with infant, heart regular rate and rhythm, lungs clear to auscultation bilaterally, abdomen is soft and nontender, fundus is firm, extremities have no calf tenderness and no edema Urinary Catheter Management: Vora: Cath Placed During This Visit: yes Urinary Catheter Date of Insertion: 05/31/23 Urinary Catheter Time of Insertion: 08:22 Discharge Data Studies Completed and Pending Laboratory Results WBC 25.34 10^3/uL (3.29-11.43) H 06/01/23 02:31 RBC 2.92 10^6/uL (3.85-5.65) L 06/01/23 02:31 Hgb 9.30 g/dL (11.27-16.99) L 06/01/23 02:31 Hct 27.3 % (36-47) L 06/01/23 02:31 MCV 93.5 fl (85-98) 06/01/23 02:31 MCH 31.8 pg (27-33) 06/01/23 02:31 MCHC 34.1 g/dL (30-55) 06/01/23 02:31 RDW 13.8 % (12.1-15.1) 06/01/23 02:31 Plt Count 212 10^3/cmm (157-399) 06/01/23 02:31 MPV 12.6 fL (7.4-10.4) H 06/01/23 02:31 Neut % (Auto) 70.6 % 05/31/23 06:38 Lymph % (Auto) 16.8 % 05/31/23 06:38 [place] % (Auto) 8.5 % 05/31/23 06:38 Eos % (Auto) 1.5 % 05/31/23 06:38 Baso % (Auto) 0.4 % 05/31/23 06:38 Neut # (Auto) 16.76 10^3/uL (1.8-7.7) H 05/31/23 06:38 Lymph # (Auto) 4.0 10^3/uL (0.8-4.8) 05/31/23 06:38 [place] # (Auto) 2.0 10^3/uL (0.2-0.9) H 05/31/23 06:38 Eos # (Auto) 0.4 10^3/uL (0.0-0.8) 05/31/23 06:38 Baso # (Auto) 0.1 10^3/uL (0.0-0.1) 05/31/23 06:38 Nucleated RBC % (auto) 0 % 05/31/23 06:38 Nucleated RBCs # 0.0 /100WBC 05/31/23 06:38 Blood Type O Positive 05/31/23 06:38 Rho(D) Type Rh positive 05/31/23 06:38 Antibody Screen Negative 05/31/23 06:38 Vitals Last Vital Signs Temp 98.0 F 06/01/23 09:16 Pulse 97 06/01/23 09:16 Resp 14 06/01/23 09:16 BP 92/58 06/01/23 09:16 Pulse Ox 99 06/01/23 09:16 O2 Del Method Room Air 06/01/23 09:16 Discharge Plan Discharge Patient Disposition: Home Condition: Stable Prescriptions: Discontinued methylprednisolone [Medrol (Warren)] 4 mg tablets,dose pack See Rx Instructions .ROUTE .COMPLEX Qty: 21 0RF Rx Instructions: orally per package directions meloxicam 7.5 mg tablet 7.5 mg PO DAILY Qty: 14 0RF Discharge Orders: Discharge Order (Routine); Ordered 06/01/23 Ordered By: Marcia Irizarry Discharge Diet: Usual diet Discharge Activity: Limit activity as instructed Patient Instructions: Depression (DC), Bleeding (DC), Preeclampsia and Eclampsia After Delivery (GEN), Hemorrhage (DC), OB Discharge Report, OB Food/Drug Interaction Guide, OB Care at Home, Opioid Safety, OB Vaginal Deliveries Activity Restrictions/Additional Instructions: Nothing per vagina for 6 weeks. Discharge Attestations Time Spent in Discharge Care*: less than 30 min Quality Metrics Clinical Quality Measures [ No reported AMI, CVA or VTE this stay] Coding Level of Care Code Acute Code for Chg Fwd
[2023-06-01 15:49] VITALS: BP 101/66; PULSE 97; RESP 16; TEMP 36.9; O2SAT 98
[2023-06-01 16:00] VITALS: BP 101/66; PULSE 97; RESP 16; TEMP 36.9; O2SAT 98
== END 2023-06-01 16:20 | disposition home or self-care (01) | DRG 807 ==
LOC: OPOB 06:20 → OBGYN 06:20
PROVIDERS: Admitting Provider Family Medicine; PCP Family Medicine; Visit Provider Family Medicine
DX: O99.334 Smoking (tobacco) complicating childbirth (principal); Z37.0 Single live birth; Z3A.39 39 weeks gestation of pregnancy; O70.0 First degree perineal laceration during delivery
CPT/HCPCS: 51702; 59409; 85025; 85027; 86850; 86900; 96374; J2590; J2795; J3010; J7120

== ENCOUNTER 2023-07-18 01:13 | Emergency (ER) | payer MEDICAID, SELFPAY ==
[2023-07-18] VITALS (7 sets, daily range): BP systolic 116–117; BP diastolic 57–71; PULSE 69–86; RESP 16; TEMP 36.7; O2SAT 97–100; BMI 19.2
[2023-07-18 01:41] LABS: Basophils % 0.4 %; Eosinophils # 0.3 10^3/uL (0.0-0.8); Eosinophils % 2.2 %; Hematocrit 34.6 % (36-47); Lymphocytes # 5.3 10^3/uL (0.8-4.8); Lymphocytes % 46.6 %; Mean Corpuscular HGB Conc 32.9 g/dL (30-55); Mean Corpuscular Hemoglobin 30.2 pg (27-33); Mean Corpuscular Volume 91.5 fl (85-98); Mean Platelet Volume 10.4 fL (7.4-10.4); Monocytes # 0.7 10^3/uL (0.2-0.9); Monocytes % 6.5 %; Neutrophils # 4.99 10^3/uL (1.8-7.7); Neutrophils % 44.1 %; Nucleated Red Blood Cells % 0 %; Platelet Count 255 10^3/cmm (157-399); Red Blood Count 3.78 10^6/uL (3.85-5.65); Red Cell Distribution Width 12.9 % (12.1-15.1); White Blood Count 11.32 10^3/uL (3.29-11.43)
[2023-07-18 01:49] LABS: Add Urine Microscopic? YES; Bilirubin Urine 1+ (Negative); Blood Urine Neg (Negative); Glucose Urine UA Norm (Normal); Ketones Urine Negative (Negative); Leukocyte Esterase Urine 2+ (Negative); Nitrate Urine Negative (Negative); Protein Urine 1+ (Negative); Squamous Epithelial Cell Urine 25-40 /hpf (0-5); Urine Appearance Hazy (CLEAR); Urine Color Yellow (Yellow); Urobilinogen Urine 1 mg/dL (Negative); pH Urine 5 (5-7)
[2023-07-18 01:50] LABS: Add Urine Culture? No; Bacteria Urine 2+ /hpf; HCG Qualitative Urine. Negative (Negative); Mucus Urine 3+ /hpf; RBC Urine 0-4 /hpf (0-2)
[2023-07-18 01:52] LABS: Amphetamines Screen Urine Negative (Negative); Barbiturates Screen Urine Negative (Negative); Benzodiazepines Screen Urine Negative (Negative); Cocaine Screen Urine Negative (Negative); Opiate Screen Urine Negative (Negative); PCP Screen Urine Negative (Negative); THC Screen Urine Negative (Negative)
[2023-07-18 02:00] LABS: Alanine Aminotransferase 9 U/L (0-33); Albumin Level 4.3 g/dL (3.5-5.2); Alkaline Phosphatase 133 U/L (35-105); Aspartate Amino Transferase 14 U/L (0-32); Blood Urea Nitrogen 18 mg/dL (6-20); Calcium 8.7 mg/dL (8.5-10.5); Carbon Dioxide 21 mmol/L (22-29); Chloride 104 mmol/L (98-107); Globulin 2.3 g/dL (1.3-4.6); Glomerular Filtration Rate 151.6 mL/min (90-130); Glucose 130 mg/dL (65-115); Lipase 38 U/L (13-60); Osmolality Calculated 292 mOsm/kg (285-295); Sodium 139 mmol/L (136-145); Total Bilirubin 0.2 mg/dL (0.15-1.2); Total Protein 6.6 g/dL (6.6-8.7)
[2023-07-18 02:01] LABS: Slide Review Slide Review Perform
--- NOTE | 2023-07-18 02:01 | CTR_ITS ---
PROCEDURE INFORMATION: Exam: CT Abdomen And Pelvis With Contrast Exam date and time: 07/18/2023 2:44 AM Age: 23 years old Clinical indication: Abdominal pain; Localized; Upper; Patient HX: Epigastric pain per patient; Additional info: Rlq abd pain TECHNIQUE: Imaging protocol: Computed tomography of the abdomen and pelvis with contrast. Radiation optimization: All CT scans at this facility use at least one of these dose optimization techniques: automated exposure control; mA and/or kV adjustment per patient size (includes targeted exams where dose is matched to clinical indication); or iterative reconstruction. Contrast material: OMNI 350; Contrast volume: 80 ml; Contrast route: INTRAVENOUS (IV); COMPARISON: US OB >= 14 weeks fetus [id number] 01/17/2023 11:44 AM RADIATION DOSE METRICS: Total DLP (mGy-cm): 360 FINDINGS: Lungs: Lung bases are clear as visualized. Heart: Base of heart is unremarkable as visualized. Liver: Normal. No mass. Gallbladder and bile ducts: Mild dilatation of the intrahepatic biliary system. Common bile duct is nondilated. Gallbladder is mildly decompressed. There is circumferential wall thickening, as well as pericholecystic fluid. Punctate gallstone is present at the gallbladder fundus. Pancreas: Normal. No ductal dilation. Spleen: Normal. No splenomegaly. Adrenal glands: Normal. No mass. Kidneys and ureters: Normal. No hydronephrosis. Stomach and bowel: Unremarkable. No obstruction. No mucosal thickening. Appendix: No evidence of appendicitis. Intraperitoneal space: Unremarkable. No free air. No significant fluid collection. Vasculature: Unremarkable. No abdominal aortic aneurysm. Lymph nodes: Unremarkable. No enlarged lymph nodes. Urinary bladder: Unremarkable as visualized. Reproductive: Mild enhancement of the vaginal mucosa. Bones/joints: Mild scattered degenerative endplate changes. Soft tissues: Unremarkable. CT/CT abdomen pelvis w con* [id number] IMPRESSION: 1. Mild dilatation of the intrahepatic biliary system. Correlate with laboratory findings for biliary dysfunction, and hepatic viral panel. 2. Gallbladder is mildly decompressed however there is significant circumferential wall thickening as well as pericholecystic fluid. Punctate gallstone is present within the gallbladder fundus. CT findings of which can be seen in cholecystitis, however other inflammatory conditions can present similarly, for example hepatitis. Recommend right upper quadrant ultrasound for confirmation of the CT findings, as well as, correlation with laboratory findings for biliary dysfunction, and patient presentation.
[2023-07-18 02:08] LABS: Anion Gap 17.7 (5-19); Potassium 3.7 mmol/L (3.5-5.1)
[2023-07-18] MEDS: cefTRIAXone 1,000 MG in sodium chloride 0.9% (plus) 50 ML 100 MG IV (02:13)
[2023-07-18] MEDS: ketorolac 30 mg/mL INJ IVP (02:14)
[2023-07-18] MEDS: iohexol 350 mg/mL 500 mL Btl (per mL) IV (02:45)
--- NOTE | 2023-07-18 04:01 | USR_ITS ---
PROCEDURE INFORMATION: Exam: US Abdomen, Limited; Right Upper Quadrant Exam date and time: 07/18/2023 4:11 AM Age: 23 years old Clinical indication: Abdominal pain; Other: Ruq; Additional info: Ruq abd pain TECHNIQUE: Imaging protocol: Real time ultrasound of the abdomen with image documentation. Limited exam focused on the right upper quadrant. COMPARISON: US OB >= 14 weeks fetus [id number] 01/17/2023 11:44 AM FINDINGS: Liver: Normal. No masses. Gallbladder: Calcified gallstone at the gallbladder fundus measuring 0.6 x 0.7 cm. Gallbladder wall is circumferentially thickened, however gallbladder is decompressed. No significant surrounding inflammatory change or pericholecystic fluid. Biliary ducts: Normal. No stones. No dilation. Pancreas: Visualized pancreas is unremarkable. Right kidney: Normal. No mass. No hydronephrosis. US/US gall bladder [id number] IMPRESSION: 1. Cholelithiasis without evidence of cholecystitis. 2. Thickened gallbladder wall likely on the basis of decompression, however, can be seen in hepatitis and other inflammatory states, correlate with patient presentation and laboratory findings.
--- NOTE | 2023-07-18 04:56 | ED_ITS ---
HPI - Abdominal Pain 2 General: Chief Complaint: Abdominal Pain Stated Complaint: abd pain Time Seen by Provider: 07/18/23 01:21 History of Present Illness: 23-year-old female presents emergency de partment with complaints of bilateral lower abdominal pain and intermittent right upper quadrant abdominal pain. She states her lower abdominal pain is a 10 out of 10 and woke her up from sleep. She states it is a sharp stabbing type pain. She does endorse increased urinary frequency and dysuria worsening over the previous 5 days. She does have associated nausea and a single episode of vomiting. EMS personnel did provide the patient Zofran and 100 mcg of fentanyl prior to arrival here in the emergency department. Associated Symptoms: Reports dysuria, nausea and vomiting Review of Systems 2 General: Reports: 10 or more systems reviewed and unremarkable except in HPI and below GI: Reports: abdominal pain, nausea and vomiting : Reports: dysuria and urinary frequency PFSH ED 2 PFSH: Social History Smoking and tobacco/nicotine status: current every day tobacco/nicotine user Physical Exam 2 Narrative: EXAM NARRATIVE: Constitutional: the patient appears well nourished and with normal development. In acute pain, rocking back and forth on the exam bed. Vital signs reviewed as documented. HENMT: Normocephalic, atraumatic. External ears normal appearance without drainage. Nose without drainage, normal appearance. Mucus membranes moist. Neck is supple, No jugular venous distension, trachea is midline. No lymphadenopathy. Eyes: Pupils are equal, round. No scleral icterus. Extra-ocular movement are intact. Thorax is symmetrical and with equal rise and fall with respirations. Resp: Lungs are clear to auscultation. No wheezes, rales, crackles or ronchi at present. Cardio: Regular rate and rhythm. Positive S1, S2. No appreciable murmurs, rubs or gallops. GI: Abdominal exam reveals normal bowel sounds to all quadrants. No organomegaly. No obvious palpable masses noted. No hepatomegally appreciated. Soft, tender to palpation to the right upper quadrant, left and right lower quadrants tender to palpation. Extremity: Extremities are non-edematous and both femoral and pedal pulses are 2+ and equal bilaterally. Moves all extremities well, sensation in all extremities. Neuro: Alert and oriented x4, person, place, time and situation. Motor strength in the upper and lower extremities are equal and bilateral 5/5. Psych: Cooperative, calm, normal thought process, appropriate judgment. Skin: No lesions, rashes. No gross abnormalities noted. Back: Symmetrical, no obvious deformity, No CVA tenderness Course 2 Vital Signs: Vital signs: Vital Signs Temperature 98.1 F 07/18/23 01:15 Pulse Rate 75 07/18/23 04:30 Respiratory Rate 16 07/18/23 02:19 Blood Pressure 116/57 07/18/23 01:49 Pulse Oximetry 97 07/18/23 04:30 Oxygen Delivery Me thod Room Air 07/18/23 04:30 MDM - Abdominal Pain Medical Decision Making Physical exam completed and documented the urinalysis did show findings consistent with a urinary tract infection/cystitis. CT scan of the abdomen did demonstrate concern for gallbladder wall thickening with cholelithiasis without cholecystitis. I did provide the patient Toradol for pain relief as well as nausea medicine and IV Rocephin for her cystitis. I discussed the need for follow-up to have her gallbladder evaluated by general surgery and have provided her the contact information of the general surgeon on-call. I provided her discharge instructions and prescriptions for antibiotics. Medical Records I reviewed the patient's medical records. Lab Data I reviewed the patient's lab results. 07/18/23 01:25 07/18/23 01:25 Labs/Radiology: Radiology Impressions Abdomen/Pelvis CT 07/18/23 02:01 IMPRESSION: 1. Mild dilatation of the intrahepatic biliary system. Correlate with laboratory findings for biliary dysfunction, and hepatic viral panel. 2. Gallbladder is mildly decompressed however there is significant circumferential wall thickening as well as pericholecystic fluid. Punctate gallstone is present within the gallbladder fundus. CT findings of which can be seen in cholecystitis, however other inflammatory conditions can present similarly, for example hepatitis. Recommend right upper quadrant ultrasound for confirmation of the CT findings, as well as, correlation with laboratory findings for biliary dysfunction, and patient presentation. Laboratory Results WBC 11.32 10^3/uL (3.29-11.43) 07/18/23 01:25 RBC 3.78 10^6/uL (3.85-5.65) L 07/18/23 01:25 Hgb 11.40 g/dL (11.27-16.99) 07/18/23 01:25 Hct 34.6 % (36-47) L 07/18/23 01:25 MCV 91.5 fl (85-98) 07/18/23 01:25 MCH 30.2 pg (27-33) 07/18/23 01:25 MCHC 32.9 g/dL (30-55) 07/18/23 01:25 RDW 12.9 % (12.1-15.1) 07/18/23 01:25 Plt Count 255 10^3/cmm (157-399) 07/18/23 01:25 MPV 10.4 fL (7.4-10.4) 07/18/23 01:25 Neut % (Auto) 44.1 % 07/18/23 01:25 Lymph % (Auto) 46.6 % 07/18/23 01:25 [place] % (Auto) 6.5 % 07/18/23 01:25 Eos % (Auto) 2.2 % 07/18/23 01:25 Baso % (Auto) 0.4 % 07/18/23 01:25 Neut # (Auto) 4.99 10^3/uL (1.8-7.7) 07/18/23 01:25 Lymph # (Auto) 5.3 10^3/uL (0.8-4.8) H 07/18/23 01:25 [place] # (Auto) 0.7 10^3/uL (0.2-0.9) 07/18/23 01:25 Eos # (Auto) 0.3 10^3/uL (0.0-0.8) 07/18/23 01:25 Baso # (Auto) 0.0 10^3/uL (0.0-0.1) 07/18/23 01:25 Nucleated RBC % (auto) 0 % 07/18/23 01:25 Nucleated RBCs # 0.0 /100WBC 07/18/23 01:25 Sodium 139 mmol/L (136-145) 07/18/23 01:25 Potassium 3.7 mmol/L (3.5-5.1) 07/18/23 01:25 Chloride 104 mmol/L (98-107) 07/18/23 01:25 Carbon Dioxide 21 mmol/L (22-29) L 07/18/23 01:25 Anion Gap 17.7 (5-19) 07/18/23 01:25 BUN 18 mg/dL (6-20) 07/18/23 01:25 Creatinine 0.5 mg/dL (0.5-0.9) 07/18/23 01:25 GFR Calculation 151.6 mL/min (90-130) H 07/18/23 01:25 Glucose 130 mg/dL (65-115) H 07/18/23 01:25 Calculated Osmolality 292 mOsm/kg (285-295) 07/18/23 01:25 Calcium 8.7 mg/dL (8.5-10.5) 07/18/23 01:25 Total Bilirubin 0.2 mg/dL (0.15-1.2) 07/18/23 01:25 AST 14 U/L (0-32) 07/18/23 01:25 ALT 9 U/L (0-33) 07/18/23 01:25 Alkaline Phosphatase 133 U/L (35-105) H 07/18/23 01:25 Total Protein 6.6 g/dL (6.6-8.7) 07/18/23 01:25 Albumin 4.3 g/dL (3.5-5.2) 07/18/23 01:25 Globulin 2.3 g/dL (1.3-4.6) 07/18/23 01:25 Lipase 38 U/L (13-60) 07/18/23 01:25 HCG, Qual Negative (Negative) 07/18/23 01:25 Urine Color Yellow (Yellow) 07/18/23 01:25 Urine Appearance Hazy (CLEAR) A 07/18/23 01:25 Urine pH 5 (5-7) 07/18/23 01:25 Ur Specific [place] 1.030 (1.005-1.030) 07/18/23 01:25 Urine Protein 1+ (Negative) H 07/18/23 01:25 Urine Glucose (UA) Norm (Normal) 07/18/23 01:25 Urine Ketones Negative (Negative) 07/18/23 01:25 Urine Blood Neg (Negative) 07/18/23 01:25 Urine Nitrate Negative (Negative) 07/18/23 01:25 Urine Bilirubin 1+ (Negative) H 07/18/23 01:25 Urine Urobilinogen 1 mg/dL (Negative) H 07/18/23 01:25 Ur Leukocyte Esterase 2+ (Negative) H 07/18/23 01:25 Urine RBC 0-4 /hpf (0-2) H 07/18/23 01:25 Urine WBC 10-15 /hpf (0-5) H 07/18/23 01:25 Ur Squamous Epith Cells 25-40 /hpf (0-5) H 07/18/23 01:25 Amorphous Sediment Not Reportable 07/18/23 01:25 Urine Bacteria 2+ /hpf (NONE) H 07/18/23 01:25 Urine Mucus 3+ /hpf 07/18/23 01:25 Urine Opiates Screen Negative ng/mL (Negative) 07/18/23 01:25 Ur Barbiturates Screen Negative ng/mL (Negative) 07/18/23 01:25 Ur Phencyclidine Scrn Negative ng/mL (Negative) 07/18/23 01:25 Ur Amphetamines Screen Negative ng/mL (Negative) 07/18/23 01:25 U Benzodiazepines Scrn Negative ng/mL (Negative) 07/18/23 01:25 Urine Cocaine Screen Negative ng/mL (Negative) 07/18/23 01:25 U Marijuana (THC) Screen Negative ng/mL (Negative) 07/18/23 01:25 All radiology interpretation(s) finalized by discharge Discharge Plan Discharge Patient Disposition: Home Clinical Impression: Cystitis, Abdominal pain, Cholelithiasis Condition: Stable Prescriptions: New naproxen 500 mg tablet 500 mg PO Q12H PRN (Reason: pain) Qty: 20 0RF sulfamethoxazole-trimethoprim [Bactrim DS] 800-160 mg tablet 1 tab PO BID 7 Days Qty: 14 0RF ondansetron HCl 4 mg tablet 4 mg PO Q12H 5 Days Qty: 10 0RF Discharge Orders: Discharge ED (Routine); Ordered 07/18/23 Ordered By: Jose Mckee Referrals: Mandeep Baltazar MD [Primary Care Provider] - Atilio Saavedra MD [Physician] - Discharge Diet: Low Fat Discharge Activity: Resume usual activity Patient Instructions: Abdominal Pain (ED), Opioid Safety, Pain Management Activity Restrictions/Additional Instructions: Activity Restrictions/Additional Instructions: Thank you for choosing [facility] for your healthcare needs today. Please realize that you were seen in the Emergency Department and that we are providing you with an emergency medical screening exam and this may not be a complete and all inclusive of all the testing and or medical work-up that you may need to determine your ailment or severity of your illness. It is very important that you follow-up as instructed with your Primary care provider or Specialist for additional evaluation and to discuss your medical treatment plan. You may return to the Emergency Department should you have concerns or if your condition changes or worsens in any way. It is important that you take all of your antibiotics and increase the amount of water that you drink to help flush out the bacteria in your bladder. Please call the general surgeon to discuss additional evaluation and treatment for your gallbladder/cholelithiasis. Coding Level of Care Code ED [facility] Specialist for Maria C Farley
--- NOTE | 2023-07-18 16:14 | DCPLANNER ---
A message was sent to general surgery on 07/18/23 at [phone]. [facility] to contact patient for appt
== END 2023-07-18 05:33 | disposition home or self-care (01) ==
PROVIDERS: Emergency Provider Internal Medicine; PCP Family Medicine
DX: K80.20 Calculus of gallbladder without cholecystitis without obstruction (principal); N30.90 Cystitis, unspecified without hematuria; Z72.0 Tobacco use
CPT/HCPCS: 74177; 76705; 80053; 80306; 81001; 81025; 83690; 85025; 96365; 96375; 99285; J0696; J1885; Q9967

== ENCOUNTER 2023-07-30 10:15 | Day surgery (SDC) | payer MEDICAID, SELFPAY ==
[2023-07-30] VITALS (11 sets, daily range): BP systolic 105–154; BP diastolic 72–113; PULSE 58–116; RESP 16–18; TEMP 36.3–36.6; O2SAT 90–100; BMI 21.9
--- NOTE | 2023-07-30 10:21 | W.PM.OPSUD ---
Surgery/Procedure H&P Update DATE OF PROCEDURE: July 30, 2023 DATE H&P PERFORMED: 07/22/23 H&P UPDATE INFORMATION: I have reviewed H&P completed within last 30 days, I have examined patient prior to procedure and No changes to prior documentation PLANNED PROCEDURE: Operation Date: 07/30/23 14:15 Proposed Procedures p Laparoscopic Cholecystectomy(Not Applicable) - Jos Marcum DO
[2023-07-30 10:26] LABS: OR HCG Qualitative Urine Negative (Negative)
[2023-07-30] MEDS: sodium chloride 0.9% 1,000 ML 30 ML IV (10:57)
--- NOTE | 2023-07-30 11:00 | ANES.PREANE2 ---
Pre-Anesthetic Assessment Height/Weight: Height 1.57 m Weight 54.431 kg Temp Pulse Resp BP Pulse Ox O2 Del Method 97.4 F L 72 18 117/72 99 Room Air 07/30/23 10:31 07/30/23 10:31 07/30/23 10:31 07/30/23 10:31 07/30/23 10:31 07/30/23 10:34 Operation Date: 07/30/23 14:15 Proposed Procedures p Laparoscopic Cholecystectomy(Not Applicable) - Jos Marcum DO Familial anesthetic complications: None Was Beta Nelly taken within 24 hours: N/A Was Clonidine taken within 24 hours: N/A Last intake: Intake Last Liquid Date 07/29/23 Last Liquid Time 23:00 Last Solid Date 07/29/23 Last Solid Time 20:00 Social Tobacco and No alcohol Exam alert, oriented x 3, clear to auscultation bilaterally and regular rate & rhythm Airway Mallampati: Class I Dentition: chipped (front tooth chipped and repaired) Anesthetic Plan ASA status: 1 Anesthesia: General Risk of > 500 ml blood loss (7ml/kg in children): No Medications/Allergies Home Medications Medication Instructions Recorded Confirmed Last Taken Type naproxen 500 mg tablet 500 mg PO Q12H PRN pain #20 tabs 07/18/23 07/29/23 Unknown Rx Allergies Allergy/AdvReac Type Severity Reaction Status Date / Time No Known Allergies Allergy Verified 07/22/23 13:59 Current Medications Generic Name Dose Route Start Last Admin Trade Name Freq PRN Reason Stop Dose Admin Sodium Chloride 1,000 mls @ 30 mls/hr 07/30/23 10:30 07/30/23 10:57 Sodium Chloride 0.9% IV 07/31/23 10:29 30 mls/hr .Q24H PHILLIP Administration PFSH Anesthesia Social History Smoking and tobacco/nicotine status: current every day tobacco/nicotine user cigarettes [ Other cigarette details: 12 cig day] Data Anesthesia Cardiac Studies: No Data to Display
[2023-07-30] MEDS: ceFAZolin 2,000 MG in sodium chloride 0.9% (plus) 50 ML 100 MG IV (11:09)
[2023-07-30] MEDS: lidocaine-epi 2% PF 1:200,000 20 mL SDV XX (11:25)
--- NOTE | 2023-07-30 11:51 | P.OP_ITS ---
Operative Report Date of procedure: July 30, 2023 Surgeon: Jos Marcum DO Brief History: This very pleasant 23-year-old female presented my office with abdominal pain. She had a gallbladder ultrasound which showed cholelithiasis with cholecystitis and some mild dilation of her intrahepatic bile ducts. Laparoscopic cholecystectomy with intraoperative cholangiogram was indicated. The risk and benefits were explained and documented. Procedure: Preoperative diagnosis: Symptomatic cholelithiasis Postoperative diagnosis: Same Procedure performed: Laparoscopic cholecystectomy Surgeon: Dr. Jos Marcum DO Estimated blood loss: 5 mL Specimens: Gallbladder to pathology Complications: None apparent Description of procedure: Patient was wheeled into the operative room and placed on the OR table in a supine position. Abdomen was inspected prepped and draped in usual sterile fashion. Time-out was performed and all present were in agreement. A 15 blade scalp was used to make a stab incision in the left upper quadrant and intra- abdominal insufflation was achieved using a Veress needle. After localizing the tissue incisions were made and a 5 millimeter trocar was placed into the umbilicus as well as 2 in the right upper quadrant. A 12 millimeter trocar was placed in the epigastrium. Gallbladder was grasped and elevated. The triangle of Calot was carefully dissected using blunt dissection and electrocautery until the triangle of Calot clearly identified. The cystic duct was clipped proximally and a cholangiocatheter was attempted to be inserted into the cystic duct. Unfortunately cystic duct was smaller than the cholangiocatheter and this was not possible. Cholangiogram was aborted. The cystic duct was then double clipped distally. The duct was then ligated proximally. The cystic artery was doubly clipped and ligated. The gallbladder was then removed from the liver bed using electrocautery. The gallbladder was removed from the abdomen using an Endo-Catch bag through the epigastric incision. The liver bed was inspected and no bleeding was seen. The abdomen was irrigated and suctioned. All ports removed. Skin was washed and dried. Incisions were closed with 4-0 Monocryl in a subcuticular interrupted fashion. Skin glue was applied. Patient tolerated the procedure well.
[2023-07-30] MEDS: ondansetron 2 mg/ML SDV 2 mL 4 MG IVP ×2 (12:25→13:55)
[2023-07-30] MEDS: fentaNYL 50 mcg/mL INJ 2mL IVP (12:30)
[2023-07-30] MEDS: HYDROcodone-acetaminophen 7.5-325 mg Tablet 1 TAB PO (13:13)
--- NOTE | 2023-07-30 13:55 | ANE.PACU2 ---
Inpatient post-anesthesia follow up: Airway intact: Yes Vital signs: Temperature 97.3 F Pulse Rate 62 Respiratory Rate 18 Blood Pressure 116/78 Pulse Oximetry 98 Oxygen Delivery Me thod Room Air Oxygen Flow Rate 2 Fraction of Inspir ed Oxygen Hydration adequate: Yes Nausea and vomiting: No Pain level: 1 Mental status: Baseline
== END 2023-07-30 13:56 | disposition home or self-care (01) ==
PROVIDERS: Anesthesiology; PCP Family Medicine; Visit Provider Surgery
PROC: 0FT44ZZ Resection of Gallbladder, Percutaneous Endoscopic Approach (ICD-10-PCS; CPT 47562; principal; 2023-07-30 14:05)
DX: K81.1 Chronic cholecystitis (principal); F17.210 Nicotine dependence, cigarettes, uncomplicated
CPT/HCPCS: 47562; 81025; 84703; 88304; J0131; J0330; J0690; J1100; J1200; J1885; J2250; J2405; J2704; J2710; J3010; J3490; J7030

== ENCOUNTER 2024-05-21 19:40 | Emergency (ER) | payer MEDICAID, SELFPAY ==
[2024-05-21 19:53] VITALS: BP 125/59; PULSE 90; RESP 14; TEMP 36.8; O2SAT 100; BMI 21.9
--- NOTE | 2024-05-21 20:19 | XRR_ITS ---
PROCEDURE INFORMATION: Exam: XR Right Foot Exam date and time: 05/21/2024 8:54 PM Age: 24 years old Clinical indication: Right; Patient HX: C/O RT lateral sided foot pain x 1 month TECHNIQUE: Imaging protocol: Radiologic exam of the right foot. Views: 1 or 2 views. COMPARISON: No relevant prior studies available. FINDINGS: Bones/joints: Normal. Soft tissues: Swelling overlies the base of the 5th metatarsal without subjacent fracture evident. XR/XR foot RT 2V [id number] IMPRESSION: Soft tissue swelling without subjacent fracture.
--- NOTE | 2024-05-21 22:15 | W.ED.EXTPRO ---
HPI - Extremity Problem General: Chief complaint: Extremity Injury, Lower Stated complaint: R Foot hurts Time Seen by Provider: 05/21/24 20:12 Source: patient Mode of arrival: ambulatory Limitations: no limitations History of Present Illness: Patient reports pain and swelling of the side of the right foot for the past several days. She states swelling has gone down but now she has a bump on the side of her foot. She denies any injury. She states pain is worse when she bears weight. She denies fever or chills. She denies any redness. She presents to the emergency department for further evaluation and treatment. Associated symptoms: Deny chest pain, fever(s) or rash Related Data Previous Rx's Medication Instructions Recorded docusate sodium 100 mg capsule 100 mg PO BID #14 caps 07/30/23 (Colace) polyethylene glycol 3350 17 17 g PO DAILY #119 grams 07/30/23 gram/dose oral powder (Miralax) naproxen 500 mg tablet 500 mg PO Q12H PRN pain #10 tabs 05/21/24 Allergies Allergy/AdvReac Type Severity Reaction Status Date / Time No Known Allergies Allergy Verified 05/21/24 19:58 Review of Systems Const: Denies: fever(s) or chills Eyes: Denies: change in vision or blurry vision ENMT: Denies: throat pain or ear or mastoid pain Card: Denies: chest pain Resp: Denies: dyspnea, productive cough or non-productive cough GI: Denies: abdominal pain, nausea or vomiting : Denies: flank pain Musc: Reports: joint swelling (Right lateral foot); Denies: neck pain or back pain Skin/Breast: Denies: rash, pruritus or erythema Neuro: Denies: headache(s), numbness in extremities or weakness in extremities Psych: Denies: anxiety or depression Endo: Denies: polyuria or polydipsia Praful/Lymph: Denies: easy bruising or easy bleeding All/Imm: Denies: urticaria or throat swelling PFS ED PFSH: Surgical History (Updated 08/12/23 @ 13:41 by Jos Marcum DO) Status post laparoscopic cholecystectomy Social History Smoking and tobacco/nicotine status: current every day tobacco/nicotine user cigarettes [ Other cigarette details: 12 cig day] Physical Exam Const: COMMON NORMALS: no acute distress and patient oriented x3 HENMT: COMMON NORMALS: normocephalic, atraumatic, external ears normal and Normal external nose present HEAD & SCALP: normocephalic and atraumatic NOSE: Normal external nose present EXTERNAL EAR: Yes external ears normal Eye: COMMON NORMALS: conjunctivae normal CONJUNCTIVA: Yes conjunctivae normal Resp: COMMON NORMALS: clear to auscultation bilaterally AUSCULTATION: clear to auscultation bilaterally, no crackles, no rales, no rhonchi and no wheezes Cardio: COMMON NORMALS: regular rate and regular rhythm RATE: regular rate RHYTHM: regular rhythm Extremity: GENERAL: Yes normal exam except as noted RIGHT LOWER EXTREMITY: Yes foot & digits (Lateral swelling and tenderness of the right foot) Neuro: COMMON NORMALS: patient oriented x3 Psych: COMMON NORMALS: mental status grossly normal, cooperative and normal affect Skin: GENERAL SKIN EXAM: no erythema and other (Swelling on the right lateral foot) Procedures Orthopedic Splinting/Casting Injury #1: Side: right Lower Extremity Injury Location: foot Lower Extremity Immobilizer: post-op shoe Other Orthopedic Equipment: crutches Additional Comments: Postoperative shoe was provided by the technician inventory specialist. Crutches and training were also provided. Course Vital Signs: Vital signs: Vital Signs Temperature 98.2 F 05/21/24 19:53 Pulse Rate 88 05/21/24 22:36 Respiratory Rate 14 05/21/24 19:53 Blood Pressure 128/71 05/21/24 22:36 Pulse Oximetry 98 05/21/24 22:36 Oxygen Delivery Me thod Room Air 05/21/24 19:53 MDM - Extremity (Nontraumatic) Medical Decision Making Patient was advised of the x-ray findings. There is no obvious fracture noted but there was soft tissue swelling noted. A postoperative shoe was applied and she was advised to use the crutches as directed. She may advance weightbearing as tolerated over the next 2 to 3 days. The patient was advised to use the medications as directed and follow-up with a local doctor for further evaluation and treatment. I also advised that she return to the emergency department with any worsening symptoms. The patient and her expressed understanding. Lab Data Radiology Impressions Foot X-Ray 05/21/24 20:19 IMPRESSION: Soft tissue swelling without subjacent fracture. All radiology interpretation(s) finalized by discharge Critical Care Time Critical Care Time: Critical Care Time: No Discharge Plan Discharge Patient Disposition: Home Clinical Impression: Acute pain of right foot, Localized swelling of right foot Condition: Stable Prescriptions: New naproxen 500 mg tablet 500 mg PO Q12H PRN (Reason: pain) Qty: 10 0RF Discontinued erythromycin 5 mg/gram (0.5 %) ointment 0.5 inch ophthalmic (eye) QID 7 Days Qty: 3.5 0RF naproxen 500 mg tablet 500 mg PO Q12H PRN (Reason: pain) Qty: 20 0RF Hold Instructions: Resume on 08/02/23. No Action Colace 100 mg capsule 100 mg PO BID Qty: 14 0RF Miralax 17 gram/dose powder 17 g PO DAILY Qty: 119 0RF Discharge Orders: Discharge ED (Routine); Ordered 05/21/24 Ordered By: Mk Singh Referrals: Mandeep Baltazar MD [Primary Care Provider] - Patient Instructions: Arthralgia (ED), Swollen Joint (ED), Opioid Safety, Pain Management Activity Restrictions/Additional Instructions: Take medications as directed. Your prescriptions were sent electronically to your preferred pharmacy. Elevate the foot, ice 20 minutes at a time, 5 times throughout the day as needed for pain or swelling. Use the postoperative shoe and crutches as directed for the next 2 to 3 days then advance weightbearing as tolerated. Follow-up with a local doctor for further evaluation and treatment. Return to the emergency department with any worsening symptoms. Coding Level of Care Code ED Strategy Associate for Maria C Farley
[2024-05-21 22:36] VITALS: BP 128/71; PULSE 88; O2SAT 98
== END 2024-05-21 23:39 | disposition home or self-care (01) ==
PROVIDERS: Emergency Provider Physician Assistant; PCP Family Medicine
DX: M79.671 Pain in right foot (principal); R60.0 Localized edema; F17.210 Nicotine dependence, cigarettes, uncomplicated
CPT/HCPCS: 12345; 73620; 99283; E0114

== ENCOUNTER 2024-11-05 11:37 | Outpatient (CLI) | payer MEDICAID, SELFPAY ==
[2024-11-05 11:38] VITALS: BMI 24.8
[2024-11-05 11:48] VITALS: BP 111/56; PULSE 126
[2024-11-05 12:04] VITALS: BP 102/57; PULSE 109
[2024-11-05 12:11] VITALS: BP 102/57; PULSE 109; O2SAT 98
== END 2024-11-05 12:11 | disposition home or self-care (01) ==
LOC: OPOB 11:40 → OBGYN 11:40
PROVIDERS: PCP Family Medicine; Visit Provider Family Medicine
DX: O36.8390 Maternal care for abnormalities of the fetal heart rate or rhythm, unspecified trimester, not applicable or unspecified (principal); Z3A.00 Weeks of gestation of pregnancy not specified
CPT/HCPCS: 59025

== ENCOUNTER 2024-12-11 14:28 | Inpatient (IN) | payer MEDICAID, SELFPAY ==
[2024-12-11] VITALS (72 sets, daily range): BP systolic 86–126; BP diastolic 51–78; PULSE 71–105; RESP 17–18; TEMP 36.4; O2SAT 98–99; BMI 24.5
[2024-12-11 14:44] LABS: Hematocrit 29.7 % (36-47); Hemoglobin 9.90 g/dL (11.27-16.99); Mean Corpuscular HGB Conc 33.3 g/dL (30-55); Mean Corpuscular Hemoglobin 30.6 pg (27-33); Mean Corpuscular Volume 91.7 fl (85-98); Nucleated Red Blood Cells % 0 %; Platelet Count 217 10^3/cmm (157-399); Red Blood Count 3.24 10^6/uL (3.85-5.65); White Blood Count 17.13 10^3/uL (3.29-11.43)
[2024-12-11] MEDS: ROPivacaine syringe 100 MG/50 ML SYRINGE 10 MG EPIDURAL (16:17)
--- NOTE | 2024-12-11 16:21 | P.ANESASSM_ITS ---
Pre-Anesthetic Assessment Height/Weight: Height 1.57 m Weight 60.923 kg Pulse Resp BP Pulse Ox O2 Del Method 91 17 103/62 99 Room Air 12/11/24 16:19 12/11/24 13:38 12/11/24 16:19 12/11/24 16:15 12/11/24 15:00 Epidural Familial anesthetic complications: None Was Beta Nelly taken within 24 hours: N/A Was Clonidine taken within 24 hours: N/A Last intake: 1800 12/10 Social Tobacco and No alcohol 0.5 pack(s) per day Exam alert, oriented x 3, clear to auscultation bilaterally and regular rate & rhythm Airway Submandibular: within normal limits Cervical ROM: within normal limits Dentition: chipped (Front tooth chipped, has a cap) and full Comments: Comments: Several facial piercings, patient educated they would be removed if was needed. Patient verbalized understanding History/ROS No significant history except as noted and No significant complaints Pulmonary None reported CV/HEM Anemia None reported Hepatic None reported GI None reported Metabolic None reported Musc/skel None reported Neuropsych Anxiety, Depression and Headache Anesthetic Plan ASA status: 2 Anesthesia: Anesthesia Evaluation, General and Regional (specify below) (Epidural) Risk of > 500 ml blood loss (7ml/kg in children): Yes, adequate IV access and fluids planned Medications/Allergies Home Medications ?Medication ?Instructions ?Recorded ?Confirmed ?Last Taken ?Type docusate sodium 100 mg capsule 100 mg PO BID #14 caps 07/30/23 12/11/24 Unknown Rx (Colace) polyethylene glycol 3350 17 17 g PO DAILY #119 grams 0 07/30/23 12/11/24 Unknown Rx gram/dose oral powder (Miralax) naproxen 500 mg tablet 500 mg PO Q12H PRN pain #10 tabs 05/21/24 12/11/24 Unknown Rx Allergies Allergy/AdvReac Type Severity Reaction Status Date / Time No Known Allergies Allergy Verified 12/11/24 13:44 Current Medications Generic Name Dose Route Start Last Admin Trade Name Freq PRN Reason Stop Dose Admin Lactated Ringer's 1,000 mls @ 999 mls/hr 12/11/24 14:29 12/11/24 14:49 Lactated Ringers IV 999 mls/hr .Q1H1M PRN Administration See label comments PFSH Anesthesia Surgical History (Updated 08/12/23 @ 13:41 by Jos Marcum DO) Status post laparoscopic cholecystectomy Social History Smoking and tobacco/nicotine status: current every day tobacco/nicotine user cigarettes [ Other cigarette details: 12 cig day] Female Reproductive History : 5 Data Anesthesia 12/11/24 14:30 Short CBC 12/11/24 Range/Units 14:30 WBC 17.13 H (3.29-11.43) 10^3/uL Hgb 9.90 L (11.27-16.99) g/dL Hct 29.7 L (36-47) % MCV 91.7 (85-98) fl Plt Count 217 (157-399) 10^3/cmm Neut % (Auto) 71.0 % Neut # (Auto) 12.15 H (1.8-7.7) 10^3/uL Blood Bank 12/11/24 14:30 Blood Type O Positive Rho(D) Type Rh positive
--- NOTE | 2024-12-11 16:23 | ANES.PROC ---
Anesthesia Procedures Procedure/Date: 12/11/24 Epidural: Time Out Performed: Yes Consents Signed: Procedure Consent and NPO Consent Consent: requested by attending/covering physician, from patient, risks and benefits reviewed and patient agrees to proceed Lumbar Level: L3-L4 Epidural position: sitting Epidural procedure: sterile prep of area (betadine), 1% lidocaine to numb the area (3 mLs), neg for paresthesia, test dose given, 1.5% xylocaine 1:200k epi (3 mL/2 mL), placed PCEA, no systemic response, sterile dressing applied, L.U.D. no apparent complications and 0.2% Ropiavacaine @ mls/hr (10 mLs/hr) Additional Comments: ALEC at 4cm, catheter threaded to 10cm at skin. Negative aspiration for blood or CSF. Patient educated on epidural infusion and VESSEL TRAFFIC OFFICER button. Verbalizes understanding.
[2024-12-11] MEDS: oxytocin 30 UNIT/500 ML BAG IV (18:08)
--- NOTE | 2024-12-11 18:53 | PM.OPHPUD ---
Labor & Delivery H&P Update Date of Procedure: December 11, 2024 Date H&P Performed: 12/07/24 Admission Diagnosis: IUP at 38 weeks 3 days gestation in active labor Planned procedure: Expectant management of labor and delivery
--- NOTE | 2024-12-11 18:54 | PM.DELIVERY ---
Delivery Note: Date of delivery: December 11, 2024 Procedure: Normal spontaneous vaginal delivery Estimated blood loss (mL): 200 Pre-Delivery Course: The patient had routine care at [facility]. There were no complications during the . labs: Blood type O+ antibody negative, hepatitis B nonreactive, hepatitis C nonreactive, HIV nonreactive, rubella nonimmune, GC chlamydia negative, RPR nonreactive, UDS negative, Pap ASCUS, she failed her 1 hour glucose tolerance test but she passed the 3-hour glucose tolerance test, she was GBS negative. Delivery: This is a 24-year-old G5, P3 at 38 weeks 3 days gestation with an TACO of 12/21/2024 who presented to labor and delivery in active labor. She received an epidural for pain management. When she was 8 cm dilated she underwent artificial rupture of membranes with meconium stained fluid. Strangely her contractions spaced out afterwards and she was not making cervical change so she was started on Pitocin. She then progressed rapidly and had to push through only 1 contraction to have a normal spontaneous vaginal delivery of a viable female infant weight 3310 g, 7 pounds 5 ounces, Apgars 9 and 9 over an intact perineum. The was suctioned at delivery and placed on the mother's chest. The cord was clamped and cut. The placenta was delivered grossly intact and normal to inspection. There were no lacerations. Mother and infant were doing well after delivery. Rupture of membranes was approximately 2 hours prior to delivery A&P PDMP PDMP Reviewed: Not Reviewed Coding Level of Care Code Acute Code for Chg Fwd
[2024-12-11] MEDS: HYDROcodone-acetaminophen 5-325 mg Tablet PO (19:26)
[2024-12-12 00:25] VITALS: BP 102/57; PULSE 70; RESP 17; O2SAT 99
[2024-12-12] MEDS: benzocaine-menthol 78 gm Canister 1 SPRAY TOPICAL (00:29)
[2024-12-12 02:00] VITALS: BP 93/55; PULSE 89; RESP 16; TEMP 37; O2SAT 97
[2024-12-12 04:00] VITALS: BP 93/53; PULSE 90; RESP 16; TEMP 36.7; O2SAT 98
--- OUTSIDE RECORDS SUMMARY | 2024-12-12 05:59 | XMS_ITS | Clinical Summary ---
Author Organization [facility] Address [address] Attn: Epic Prelude ADT APRYL E[place] [address] Care Team Providers Care Radio Frequency Engineer Name Role Phone AlonKerrie Gurjit JULIEN Primary Care Provider Allergies No known active allergies Medications vits15/iron/folic/ dss ( VIT 69-SRMD-HRXIY-DSS ORAL) Take by mouth. Active Drospirenone-Ethin yl estradiol (Lorelei, 28,) 3-0.02 mg tabletIndications: Encounter for initial prescription of contraceptive pills Take 1 Tablet by mouth daily. 28 Tablet 12 4 Active HYDROcodone-acetam inophen (NORCO) 5-325 mg tablet Take 1 Tablet by mouth every 4 hours as needed for Pain, Moderate. Active busPIRone (BUSPAR) 15 mg TabletIndications: NIDIA (generalized anxiety disorder) Take 1 Tablet (15 mg) by mouth 3 times daily as needed for Anxiety. 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 11/22/2023 NIDIA (generalized anxiety disorder) 11/22/2023 Encounters Date Type Department Care Team Description 11/11/2024 External Device Data [facility] ABSTRACTION Provider, Abstract 11/11/2024 External Device Data [facility] ABSTRACTION Provider, Abstract 11/10/2024 External Device Data [facility] ABSTRACTION Provider, Abstract 10/27/2024 External Device Data [facility] ABSTRACTION Provider, Abstract 10/20/2024 External Device Data [facility] ABSTRACTION Provider, Abstract 09/17/2024 External Device Data [facility] ABSTRACTION Provider, Abstract 09/17/2024 External Device Data [facility] ABSTRACTION Provider, Abstract 09/16/2024 External Device Data [facility] ABSTRACTION Provider, Abstract 09/15/2024 External Device Data [facility] ABSTRACTION Provider, Abstract from Last 3 Months Immunizations Immunization Administration Dates Next Due (M-M-R II/PRIORIX)(12 MO UP) MEASLES, MUMPS AND RUBELLA VIRUS VACCINE, 0.5 ML IM/SUBCUT 08/10/2004 (VARIVAX)(12 MOS UP)VARICELL A VIRUS VACCINE (PF) 0.5 ML, SUB CUT 09/09/2001 Dt Dtp Dtap Vaccine 08/10/2004, 0,02/06/2000,1999 HIB, Unspecified Formulation 04/05/2000,02/06/20 00,1999 Hepatitis B Vaccine 02/06/2000,1999 IPV/OPV 08/10/2004, 0,02/06/2000,1999 Family History Medical History Relation Name Comments Cancer Maternal Grandfather Diabetes Maternal Grandfather Hypertension Maternal Grandfather Diabetes Maternal Grandmother Hypertension Maternal Grandmother Migraines Mother Ilana Diabetes Paternal Grandfather Hypertension Paternal Grandfather Diabetes Paternal Grandmother Hypertension Paternal Grandmother Relation Name Status Comments Brother Parvez Alive Father Alive Maternal Grandfather Maternal Grandmother Mother Ilana Alive Paternal Grandfather Paternal Grandmother Sister Ermelinda Alive Social History Tobacco Use Types Packs/Day Years Used Date Smoking Tobacco: Every Day Cigarettes Smokeless Tobacco: Never Tobacco Cessation:Ready to Q uit: Not Asked; Counseling Given: Not Answered Alcohol Use Standard Drinks/Week Comments No 0 (1 standard drink = 0.6 oz pur e alcohol) Comments No Sex and Gender Information Value Date Recorded Sex Assigned at Not on file 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 Gender Identity Not on file Sexual Orientation Not on file Last Filed Vital Signs Vital Sign Reading Time Taken Comments Blood Pressure 121/88 02/14/2024 4:30 PM CDT Pulse 84 02/14/2024 4:30 PM CDT Temperature 36.7 C (98 F) 02/14/2024 4:28 PM CDT Respiratory Rate 18 02/14/2024 4:28 PM CDT Oxygen Saturation 99% 02/14/2024 4:30 PM CDT Inhaled Oxygen Concentration - - Weight 55.4 kg (122 lb 3.2 oz) 02/14/2024 4:28 P M CDT Height 157.5 cm (5' 2 ) 02/14/2024 4:28 PM CDT Body Mass Index 22.35 02/14/2024 4:28 PM CDT Plan of Treatment Health Maintenance Due Date Last Done Comments HEPATITIS B VACCINES (3 of 3 - 3-dose series) 04/02/2000 02/06/2000, 02/06/2000, 1999, Additional history exists DTAP/TDAP/TD VACCINES (5 - Tdap) 2010 08/10/2004, 04/05/2000, 02/06/2000, Additional history exists HPV VACCINES (1 - 3-dose series) 2014 Preventative Visit-Managed Medicaid 2018 CERVICAL CANCER SCREENING 2020 HPV/Cotest (21-29) 2020 PAP SMEAR 2020 INFLUENZA VACCINE (#1) 2024 03/09/[address] [place] [address] [place] [address] HEALTH PLAN MEDICAID Care Teams Radio Frequency Engineer Relationship Specialty Start Date End Date Kerrie Chi DO [address] [place] [address] PCP - General Family Practice 03/14/10
--- OUTSIDE RECORDS SUMMARY | 2024-12-12 05:59 | XMS_ITS | Clinical Summary ---
Author Organization [facility] Address [address] [facility] [place] [address] Care Team Providers Care Emission Technician Name Role Phone Alon Kerrie L DO Primary Care Provider Allergies No known active allergies Medications No known medications Active Problems No known active problems Immunizations Immunization Administration Dates Next Due (M-M-R [...] Years Used Date Smoking Tobacco: Every Day Smokeless Tobacco: Never Alcohol Use Standard Drinks/Week Comments No 0 (1 standard drink = 0.6 oz pur e alcohol) Comments No Sex and Gender Information Value Date Recorded Sex Assigned at Not on file Legal 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:53 AM INSURANCE SALESPERSON Gender Identity Not on file Sexual Orientation Not on file Occupation Industry Job Start Date Job End Date Student Not on file Not on file Not on file Last Filed Vital Signs Vital Sign Reading Time Taken Comments Blood Pressure 124/63 07/07/2019 3:13 PM CDT Pulse 112 07/07/2019 3:13 PM CDT Temperature 36.5 C (97.7 F) 07/07/2019 3:13 PM CDT Respiratory Rate 24 11/28/2007 12:00 AM CDT Oxygen Saturation 98% 07/07/2019 3:13 PM CDT Inhaled Oxygen Concentration - - Weight 54 kg (119 lb) 07/07/2019 3:13 PM CDT Height 157.5 cm (5' 2 ) 07/07/2019 3:13 PM CDT Body Mass Index 21.77 07/07/2019 3:13 PM CDT Plan of Treatment Health Maintenance Due Date Last Done Comments HEPATITIS B VACCINES (3 of 3 - 3-dose series) 04/02/2000 02/06/2000, 1999 DTAP/TDAP/TD VACCINES (5 - Tdap) 2010 08/10/2004, 04/05/2000, 02/06/2000, Additional history exists HPV VACCINES (1 - 3-dose series) 2014 Preventative Visit-Managed Medicaid 2018 11/28/2007 CERVICAL CANCER SCREENING 2020 HPV/Cotest (21-29) 2020 PAP SMEAR 2020 INFLUENZA VACCINE (#1) [address] [address] Care Teams Emission Technician Relationship Specialty Start Date End Date Kerrie Chi DO [address] [facility] [place] [id number] PCP - General Family Practice 03/14/10
--- OUTSIDE RECORDS SUMMARY | 2024-12-12 05:59 | XMS_ITS | Encounter Summary ---
Author Organization [facility] Address [address] [place] [address] Care Team Providers Care Sew On Operator Name Role Phone Kerrie Chi DO Primary Care Provider Encounter Details Date Type Department Care Team (Late st Contact Info) Description 05/13/2007 Outpatient Historical [facility] [place] [address] [place] [address] Atilio Guerrero MD [address] [place] [address] Social History Tobacco Use Types Packs/Day Years Used Date Smoking Tobacco: Never Assessed Comments Unknown Sex and Gender Information Value Date Recorded Sex Assigned at Not on file 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
--- OUTSIDE RECORDS SUMMARY | 2024-12-12 05:59 | XMS_ITS | Clinical Summary ---
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 Social History Tobacco Use Types Packs/Day Years Used Date Smoking Tobacco: Every Day Cigarettes Smokeless Tobacco: Never Alcohol Use Standard Drinks/Week Comments Never 0 (1 standard drink = 0.6 oz pur e alcohol) Comments No Sex and Gender Information Value Date Recorded Sex Assigned at Not on file Legal Sex Female 11:10 AM CDT Gender Identity Not on file Sexual Orientation Not on file Last Filed Vital Signs Vital Sign Reading Time Taken Comments Blood Pressure 97/67 02/01/2022 11:07 AM CDT Pulse 89 02/01/2022 11:07 AM CDT Temperature - - Respiratory Rate - - Oxygen Saturation 98% 02/01/2022 11:07 AM CDT Inhaled Oxygen Concentration - - Weight 55.8 kg (123 lb) 02/01/2022 11:07 AM CDT Height 157.5 cm (5' 2 ) 02/01/2022 11:07 AM CDT Body Mass Index 22.5 02/01/2022 11:07 AM CDT Plan of Treatment Health Maintenance Due Date Last Done Comments MMR Vaccines (1 of 1 - Standard series) 10/07/2001 DTaP,Tdap,and Td Vaccines (5 - Tdap) 2010 08/10/2004, 04/05/2000, 02/06/2000, Additional history exists Varicella Vaccines (1 of 2 - 13+ 2-dose series) 2012 HPV Vaccines (1 - 3-dose series) 2014 Depression Screening 2017 Social Drivers of Health (SDoH) 2017 Hepatitis B Vaccines (1 of 3 - 19+ 3-dose series) 2018 Pneumococcal Vaccine: 50+ Years (1 of 2 - PCV) 2018 Pneumococcal Vaccine (1 of 2 - PCV) 2018 Pap Smear 2020 COVID-19 Vaccine (1 - 2023- season) 2023 Influenza Vaccine (#1) 2024 Zoster Vaccines (1 of 2) 2049 09/09/2001 RSV Vaccines (1 - 1-dose 75+ series) 2074 HIB Vaccines Aged Out No longer eligi ble based on patient's age to complete this topic Hepatitis A Vaccines Aged Out No long er eligible based on patient's age to complete this topic IPV Vaccines Aged Out No longer eligi ble based on patient's age to complete this topic Meningococcal B Vaccine Aged Out No l onger eligible based on patient's age to complete this topic Meningococcal Vaccine Aged Out No annmarie arthur eligible based on patient's age to complete this topic Rotavirus Vaccines Aged Out No longer eligible based on patient's age to complete this topic Insurance [place] [employer]
--- OUTSIDE RECORDS SUMMARY | 2024-12-12 05:59 | XMS_ITS | Encounter Summary ---
Author Organization [facility] Address [address] [place] [address] Care Team Providers Care Helper Driver Name Role Phone Kerrie Chi DO Primary Care Provider [phone] Encounter Details Date Type Department Care Team (Late st Contact Info) Description 05/22/2007 Outpatient Historical [facility]- [place] [address] [place] [address] Marcelino Edwards, DANCE TEACHER [address] [place] [phone] Social History Tobacco Use Types Packs/Day Years Used Date Smoking Tobacco: Never Assessed Comments Unknown Sex and Gender Information Value Date Recorded Sex Assigned at Not on file 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
--- OUTSIDE RECORDS SUMMARY | 2024-12-12 05:59 | XMS_ITS | Encounter Summary ---
Author Organization [facility] Address [address] [place] [address] Care Team Providers Care Progressive Die Maker Name Role Phone Kerrie Chi Primary Care Provider Encounter Details Date Type Department Care Team (Late st Contact Info) Description 06/10/2007 Outpatient Historical [facility] [place] [address] [place] [address] Atilio Guerrero MD [address] [place] [phone] Social History Tobacco Use Types Packs/Day Years Used Date Smoking Tobacco: Never Assessed Comments Unknown Sex and Gender Information Value Date Recorded Sex Assigned at Not on file 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 Pulse: 0. Not taken. BP: 0/0. Not taken. Temperature 103.0 degrees. SUBJECTIVE: Mother brings 7-year-old female for a sore throat, upper respiratory symptoms, and severe conjunctivitis. The symptoms evolved over the last two to three days. The cough is nonproductive,but hard. She has had fever as noted. Generally a healthy child. She has some allergy history. PRESENT MEDICATIONS: Claritin syrup one teaspoon daily, Flonase nasal spray twice daily as needed. OBJECTIVE: GENERAL: Examination reveals a generally well-developed and well-nourished appearing female child, alert, conversant and in no distress today. HEENT: Shows the tympanic membranes, canals, nasal membranes and throat unremarkable. Eyes- show marked conjunctival injection with purulent drainage bilaterally. Both the bulbar and the palpebral conjunctivae are diffusely involved. No evidence of corneal injury or involvement. NECK: Supple without significant adenopathy. LUNGS: Mostly clear with slightly coarse breath sounds on coughing. No rhonchi, wheezes, or rales. HEART: Regular rate and rhythm without appreciable murmur. ASSESSMENT: 1. Viral upper respiratory infection. 2. Purulent conjunctivitis. PLAN: Gentamicin ophthalmic solution, two drops in affected eye q. four hours while awake (note, the child was given sodium Sulamyd a couple of days ago and seemed to make her eyes worse). Discussed other supportive care for urinary tract infection. Discussed intrafamily hygiene. A prescription forRobitussin AC p.r.n. cough given. Followup if not improving or certainly if worsening. The mother understands and is agreeable. Atilio Guerrero M.D. [facility] Electronically Signed by Atilio Guerrero M.D. 07/15/2007 08:33 , 10:39 A P, 605 Document #: [id number] cc: documented in this encounter Plan of Treatment Not on file documented as of this encounter Visit Diagnoses Not on filedocumented in this encounter Care Teams Progressive Die Maker Relationship Specialty Start Date End Date Kerrie Chi DO [address] [place] [address] PCP - General Family Practice 03/14/10 documented as of this encounter
[2024-12-12 06:57] LABS: Hematocrit 25.5 % (36-47); Hemoglobin 8.40 g/dL (11.27-16.99); Mean Corpuscular HGB Conc 32.9 g/dL (30-55); Mean Corpuscular Hemoglobin 30.8 pg (27-33); Mean Corpuscular Volume 93.4 fl (85-98); Platelet Count 190 10^3/cmm (157-399); Red Blood Count 2.73 10^6/uL (3.85-5.65); White Blood Count 15.38 10^3/uL (3.29-11.43)
--- NOTE | 2024-12-12 08:00 | ANE.PACU2 ---
Inpatient post-anesthesia follow up: Airway intact: Yes Vital signs: Temperature 98.6 F Pulse Rate 88 Respiratory Rate 16 Blood Pressure 103/67 Pulse Oximetry 99 Oxygen Delivery Me thod Room Air Oxygen Flow Rate Fraction of Inspir ed Oxygen Hydration adequate: Yes Nausea and vomiting: No Pain level: 1 Mental status: Baseline Epidural Start/End: Epidural Start Date: 12/11/24 Epidural Start Time: 15:56 Epidural End Date: 12/11/24 Epidural End Time: 20:30
[2024-12-12] MEDS: PRENATAL VIT NO.130/IRON/FOLIC 1 EACH TABLET PO (08:05)
[2024-12-12 10:30] VITALS: BP 105/57; PULSE 106; RESP 16; TEMP 36.8; O2SAT 98
--- NOTE | 2024-12-12 10:30 | P.DS_ITS ---
Discharge Providers Date of Admission: 12/11/24 14:28 Date of Discharge: December 12, 2024 Attending Provider at Admission: Marcia Irizarry MD Attending Provider at Discharge: Marcia Irizarry MD Primary Care Provider: Mandeep Baltazar MD Reason for Visit Reason for Visit: Contractions Hospital Course Hospital Course This is a 24-year-old G4 now P4 who had a normal spontaneous vaginal delivery of a viable female infant. Mother has done well . She has had average vaginal bleeding. Her hemoglobin started at 9.6 and dropped to 8.4. She is doing well ambulating and tolerating a regular diet. She is comfortable with discharge home. Physical Exam Narrative: Alert and oriented sitting up in bed holding baby with all 3 siblings in the room. Heart regular rate and rhythm, lungs clear to auscultation bilaterally, abdomen is soft and nontender, extremities have no calf tenderness and no edema. Urinary Catheter Management: Vora: Cath Placed During This Visit: yes Urinary Catheter Date of Insertion: 12/11/24 Urinary Catheter Time of Insertion: 17:29 Discharge Data Studies Completed and Pending Laboratory Results WBC 15.38 10^3/uL (3.29-11.43) H 12/12/24 06:45 RBC 2.73 10^6/uL (3.85-5.65) L 12/12/24 06:45 Hgb 8.40 g/dL (11.27-16.99) L 12/12/24 06:45 Hct 25.5 % (36-47) L 12/12/24 06:45 MCV 93.4 fl (85-98) 12/12/24 06:45 MCH 30.8 pg (27-33) 12/12/24 06:45 MCHC 32.9 g/dL (30-55) 12/12/24 06:45 RDW 13.2 % (12.1-15.1) 12/12/24 06:45 Plt Count 190 10^3/cmm (157-399) 12/12/24 06:45 MPV 11.9 fL (7.4-10.4) H 12/12/24 06:45 Neut % (Auto) 71.0 % 12/11/24 14:30 Lymph % (Auto) 19.8 % 12/11/24 14:30 [place] % (Auto) 7.8 % 12/11/24 14:30 Eos % (Auto) 0.6 % 12/11/24 14:30 Baso % (Auto) 0.2 % 12/11/24 14:30 Neut # (Auto) 12.15 10^3/uL (1.8-7.7) H 12/11/24 14:30 Lymph # (Auto) 3.4 10^3/uL (0.8-4.8) 12/11/24 14:30 [place] # (Auto) 1.3 10^3/uL (0.2-0.9) H 12/11/24 14:30 Eos # (Auto) 0.1 10^3/uL (0.0-0.8) 12/11/24 14:30 Baso # (Auto) 0.0 10^3/uL (0.0-0.1) 12/11/24 14:30 Nucleated RBC % (auto) 0 % 12/11/24 14:30 Nucleated RBCs # 0.0 /100WBC 12/11/24 14:30 Blood Type O Positive 12/11/24 14:30 Rho(D) Type Rh positive 12/11/24 14:30 Antibody Screen Negative 12/11/24 14:30 Vitals Last Vital Signs Temp 98.1 F 12/12/24 04:00 Pulse 90 12/12/24 04:00 Resp 16 12/12/24 04:00 BP 93/53 12/12/24 04:00 Pulse Ox 98 12/12/24 04:00 O2 Del Method Room Air 12/12/24 04:00 Discharge Plan Discharge Patient Disposition: Home Condition: Stable Prescriptions: New Vitamin 27 mg iron- 800 mcg Tablet 1 tab PO DAILY Qty: 90 0RF Discontinued docusate sodium [Colace] 100 mg capsule 100 mg PO BID Qty: 14 0RF polyethylene glycol 3350 [Miralax] 17 gram/dose powder 17 g PO DAILY Qty: 119 0RF naproxen 500 mg tablet 500 mg PO Q12H PRN (Reason: pain) Qty: 10 0RF Discharge Order = DC NOW: Discharge Order (Routine); Ordered 12/12/24 Ordered By: Marcia Irizarry Referrals: Marcia Irizarry MD [Physician, Family Practice] - 1 month Discharge Diet: Usual diet Discharge Activity: Limit activity as instructed Patient Instructions: Depression (DC), Bleeding (DC), Preeclampsia and Eclampsia After Delivery (GEN), Hemorrhage (DC), OB Discharge Report, OB Food/Drug Interaction Guide, Opioid Safety, OB Home Care, OB Proud Parent Packet, OB Vaginal Deliveries, Patient Portal & [facility] Instructions Activity Restrictions/Additional Instructions: Nothing per vagina for 6 weeks. Follow-up in 4 weeks Discharge Attestations Time Spent in Discharge Care*: less than 30 min Quality Metrics Clinical Quality Measures [ No reported AMI, CVA or VTE this stay] Coding Level of Care Code Acute Code for Chg Fwd
[2024-12-12 16:28] VITALS: BP 90/53; PULSE 84; RESP 17; TEMP 36.8; O2SAT 97
[2024-12-12 19:45] VITALS: BP 103/67; PULSE 88; RESP 16; TEMP 37; O2SAT 99
[2024-12-12] MEDS: measles,mumps,rubella pf Vial (w/diluent) 0.5 ML SUBCUT (19:47)
== END 2024-12-12 19:58 | disposition home or self-care (01) | DRG 807 ==
LOC: OBGYN 19:07 → OPOB 12-14 12:10
PROVIDERS: Admitting Provider Family Medicine; PCP Family Medicine; Visit Provider Family Medicine
DX: O77.0 Labor and delivery complicated by meconium in amniotic fluid (principal); Z37.0 Single live birth; Z3A.38 38 weeks gestation of pregnancy
CPT/HCPCS: 36415; 51702; 59025; 59409; 85025; 85027; 86850; 86900; 90707; 96372; 99211; J2590; J2795; J7120; J9999